=== PATIENT | female | born 1980 | race Caucasian/White ===

== ENCOUNTER 2023-09-28 07:58 | Inpatient (IN) | payer OTHER, SELFPAY ==
[2023-09-26 17:15] VITALS: BP 143/79; BMI 23.7
[2023-09-26 17:52] LABS: Urine Albumin Trace (Neg - Trace); Urine Bilirubin Negative (Negative); Urine Character Clear (Clear); Urine Color Yellow; Urine Glucose 3+ (Negative); Urine Ketone Negative (Negative); Urine Leukocyte 2+ (Negative); Urine Nitrite Positive (Negative); Urine Occult Blood 3+ (Negative); Urine Specific Gravity 1.015 (<1.030); Urine Urobilinogen Negative (Neg - 1+)
[2023-09-26 18:04] LABS: Urine Bacteria Moderate (Negative); Urine White Cell 30-40 /HPF (0-5)
[2023-09-26] MEDS: NSS 1000 IV (18:59)
[2023-09-26 19:03] LABS: % Basophils 0.4 % (0-2); % Eosinophils 0.2 % (0-6); % Immature Granulocytes 0.4 % (0-0.5); % Lymphocytes 6.6 % (20.5-51.1); % Neutrophils 90.4 % (42.2-75.2); Absolute Lymphocytes 0.5 10^3/uL (1.2-3.4); Absolute Monocytes 0.2 10^3/uL (0.1-0.6); Absolute Neutrophils 7.4 10^3/uL (1.4-6.5); Hematocrit 34.5 % (37.0-47.0); Hemoglobin 11.8 g/dL (12.0-16.0); Mean Corp Hgb Conc. 34.2 g/dL (33.0-37.0); Mean Corpuscular Volume 90.6 fL (81.0-99.0); Mean Platelet Volume 12.5 fL (7.4-10.4); Nucleated Red Blood Cells % 0 %; Platelet Count 199 10^3/uL (130-400); Red Blood Cell Count 3.81 10^6/uL (4.20-5.40); Red Cell Dist. Width 13.3 % (11.5-14.5); White Blood Cell Count 8.2 10^3/uL (4.8-10.8)
[2023-09-26 19:39] LABS: Blood Urea Nitrogen 18 mg/dl (7-17); Calcium 9.1 mg/dl (8.4-10.2); Carbon Dioxide 25 mmol/L (22-30); Chloride 106 mmol/L (98-107); Estimated Creatinine Clearance 102 ml/min; Glucose 194 mg/dl (70-99); Sodium 136 mmol/L (135-145); eGFR > 60.00
--- NOTE | 2023-09-26 20:10 | ED.GENMED ---
History of Present Illness
General
Chief Complaint: Musculo-Skeletal Complaint
Source: patient
Exam Limitations: none
Time Seen by Provider: 09/26/23 18:19
History of Present Illness
History of Present Illness:
43-year-old female who presents with concerns about uncontrolled blood sugar. She also had a recent fall about a week ago and fell onto her right side. She has has pain in her right shoulder. Patient however today started noticed some aches that
were more diffuse and into her hands. Patient does states she recently thought she may have had a UTI but symptoms seem to get better. No fevers necessarily but her sugars have been uncontrolled. She has attributed her high sugars to recent
dental work. The patient denies back pain. No abdominal pain. No vomiting. She does have a history of urinary tract infection in the past
Past History
Past History
ED Past Medical History: IDDM and Other (Restless leg syndrome, chronic back pain, scoliosis, sciatica, opioid use disorder, cervical neoplasia, anxiety, depression)
ED Past Surgical History: Gynecological (cervical LEEP surgery)
Social History
Tobacco: Former smoker
Alcohol: None
Drug: Former user
Personal: Single
Living: alone
Employment: Employed
Family History
Family History: Diabetes
Phy Exam
Physical Exam
Physical Exam:
CONSTITUTIONAL Patient alert and oriented to person, place and time. Well-appearing. Vital signs reviewed.
HEAD atraumatic, normocephalic.
EYES eyelids normal to inspection, Extraocular muscles intact, Conjunctiva normal, Sclera normal.
NECK normal range of motion, Trachea midline, no jugular venous distention.
RESPIRATORY CHEST No respiratory distress noted, Chest expansion equal, Bilateral breath sounds clear.
CARDIOVASCULAR regular rate and rhythm, Heart sounds normal.
ABDOMEN abdomen nontender, Bowel sounds normal. No distention.
BACK normal inspection, no obvious deformities, no CVA tenderness
UPPER EXTREMITY range of motion normal, Motor strength normal, no cyanosis, no edema.
LOWER EXTREMITY range of motion normal, Motor strength normal, no cyanosis, no edema.
NEURO Speech normal, No focal motor deficits, Richy coma scale 15, Memory normal, Cranial Nerves intact to screening exam.
SKIN skin warm, dry, and normal in color.
PSYCHIATRIC patient oriented to person place and time, Normal affect.
Course
Orders/Labs/Results
Orders:
Orders
09/26/23 Dinner
2000 calorie (17 carb) Diabetic
At Your Request: Full Participation
09/26/23 17:19
CR Shoulder, Trauma - Right Urgent
Reason For Exam: pain
09/26/23 17:45
HCG, Urine Qualitative Screen Urgent
Date Specimen was Collected: 09/26/23
Time Specimen was Collected: 17:18
Comment: ADD ON
Urinalysis Reflex To Culture Urgent
Date Specimen was Collected: 09/26/23
Time Specimen was Collected: 17:18
Urine Microscopic Reflex Cult Urgent
Urine Culture Urgent
TORI Source: U
Specimen Description:
Date Specimen was Collected: 09/26/23
Time Specimen was Collected: 17:18
09/26/23 18:54
0.9% Sodium Chloride 1000 ml [Nss] 1,000 ml IV BOLUS
09/26/23 18:57
CBC/With Diff [Complete Blood Count/With Diff] Urgent
09/26/23 19:18
Basic Metabolic Panel Urgent
09/26/23 20:09
Piperacillin/Tazo 3.375 Gram [Zosyn] 3.375 gram in 50 ml IV NOW
09/26/23 20:14
Acetaminophen [Tylenol] 1,000 mg PO NOW STA
09/26/23 20:15
Add On- LAB Urgent
Tests Added?: HCG quant, urine
09/26/23 20:30
Admit/Transfer Patient As Directed
Co-Sign Provider:
Level of Care: Observation services
Assign to:: Medical/Surgical
Physician / Group: dorene
Diagnosis: uti
Code Status As Directed
Resuscitation Status: Full Code
09/26/23 20:45
Blood Culture Q30M
TORI Source: Blood/Venous
Specimen Description:
09/26/23 21:08
Lactic Acid Q4H
Comment: CANCEL 2nd LACTIC ACID IF 1st LACTIC ACID IS LESS THAN 2
Potassium Urgent
09/26/23 21:09
Blood Culture Q30M
TORI Source: Blood/Venous
Specimen Description:
09/26/23 21:48
Acetaminophen [Tylenol] 650 mg PO Q4HPRN PRN
Ibuprofen [Motrin] 800 mg PO Q8HPRN PRN
09/26/23 21:48
Activity As Directed
Activity Level: As Tolerated
Vital Signs As Directed
Frequency: Per unit guidelines
DX Deep Vein Thrombosis Video Routine
09/26/23 22:00
Insulin Pump [Patient's Own Insulin Pump] See Dose Instructions SC ACHS
09/27/23 00:15
Lactic Acid Q4H
Comment: CANCEL 2nd LACTIC ACID IF 1st LACTIC ACID IS LESS THAN 2
09/27/23 04:00
Piperacillin/Tazo 3.375 Gram [Zosyn] 3.375 gram in 50 ml IV Q6H
09/27/23 06:00
Complete Blood Count/With Diff IN AM
Comprehensive Metabolic Panel IN AM
09/27/23 08:00
Heparin 5,000 units SC Q12
Abnormal Lab Results
09/26/23 09/26/23 09/26/23
17:45 18:57 19:18
RBC 3.81 L 10^6/uL
(4.20-5.40)
Hgb 11.8 L g/dL
(12.0-16.0)
Hct 34.5 L %
(37.0-47.0)
MPV 12.5 H fL
(7.4-10.4)
Absolute Neuts (auto) 7.4 H 10^3/uL
(1.4-6.5)
Absolute Lymphs (auto) 0.5 L 10^3/uL
(1.2-3.4)
Neutrophils % 90.4 H %
(42.2-75.2)
Lymphocytes % 6.6 L %
(20.5-51.1)
BUN 18 H mg/dl
(7-17)
Creatinine 0.5 L mg/dL
(0.6-1.0)
Glucose 194 H mg/dl
(70-99)
Ur Occult Blood Reflex 3+ A
(Negative)
Urine Nitrite (Reflex) Positive A
(Negative)
Leukocyte Esterase Rfl 2+ A
(Negative)
Urine RBC 3-6 A /HPF
(0-2)
Urine WBC (Reflex) 30-40 A /HPF
(0-5)
Urine Bacteria (Reflex) Moderate A
(Negative)
Urine Glucose 3+ A
(Negative)
09/26/23 18:57
09/26/23 21:08
Vital Signs
Temp: 99.3 F
Initial and Last Documented VS:
Initial Vital Signs
Temp Pulse Resp BP Pulse Ox
98.2 F 119 16 143/79 98
09/26/23 17:15 09/26/23 17:15 09/26/23 17:15 09/26/23 17:15 09/26/23 17:15
Last Documented Vital Signs
Temp Pulse Resp BP Pulse Ox
99.4 F 99 20 134/71 99
09/26/23 21:50 09/26/23 21:50 09/26/23 21:50 09/26/23 21:50 09/26/23 21:50
MDM/Problems Addressed
MDM/Problems Addressed:
Hyperglycemia, UTI
*Pulse Oximetry
Patient hypoxic: no
*Critical Care Note
Total Time (30-74mins, 75-104mins- exclusive of procedures): 30 minutes
Data Reviewed
Review of Other/Old Records Reveals: Labs (Prior microbiology reviewed from urine culture) and Records
Source: patient and family
Prescriptions/Medications Considered But Not Given:
Consider ceftriaxone but previously has had ESBL
Patient Management
Discussion with other providers: Hospitalist
Escalation/DeEscalation of care consider admission/obs:
History of IDDM. Appears of UTI and low-grade fever. Blood cultures, Zosyn admit
ED Attending Note
-
Portions of this chart may have been created with voice recognition software.� Occasional wrong word or��sound alike� substitutions may have occurred due to the inherent limitations of voice recognition software.
Discharge Plan
Departure
Patient Disposition: Admit
Date of Disposition: 09/26/23
Time of Disposition: 20:11
Admit to: Med/Surg
Presentation/result/management discussed w/ accepting MD/DO: Hospitalist
Discharge Problem:
Pyelonephritis, Acute hyperglycemia, h/o ESBL
Interventions
Interventions:
*Risk Screen - Suicide Last Done: 09/26/23 17:15
*General Assessment Last Done: 09/26/23 19:58
*Neglect/Abuse Screening Last Done: 09/26/23 17:15
ED- Fall Risk Assessment Last Done: 09/26/23 19:58
*ED COVID-19 Vaccine History Last Done: 09/26/23 19:58
*Nursing Disposition Last Done: 09/26/23 21:52
ED-Musculoskeletal Assessment Last Done: 09/26/23 19:58
Discharge Date and Time
Discharge Date/Time: 09/26/23 21:53
[2023-09-26 20:22] VITALS: BP 144/69
[2023-09-26 20:23] VITALS: BMI 24.4
--- NOTE | 2023-09-26 20:23 | PHANOTE ---
Med Rec Note:
Pt states she took a family members Tylenol #3 yesterday (09/25/23).
[2023-09-26 20:33] LABS: HCG, Urine Qualitative Screen Negative
--- NOTE | 2023-09-26 20:33 | HPS.HSE ---
Family Physician
-
Family Physician: Julio Cesar Montero
Chief Complaint
-
body pain, hyperglycemia
History of Present Illness
43-year-old female past medical history of type 1 diabetes on insulin pump, opioid use disorder, restless leg syndrome, chronic back pain, scoliosis, sciatica, cervical intraepithelial neoplasia, anxiety/depression, presenting with pains all over
her body, elevated blood sugars in the 400s.
She states that for the past week she has been having pains all over her body. She she had 2 root canals and deep cleaning done within the past week and was on Augmentin for a few days last week. Over the weekend she noticed urinary pressure. She
had chills today but no fevers. No abdominal pain, nausea vomiting or diarrhea.
He does not smoke or drink alcohol or use any marijuana or any other drugs.
Medical History
Past Medical History
Past Medical History: Reports Other ( type 1 diabetes on insulin pump, opioid use disorder, restless leg syndrome, chronic back pain, scoliosis, sciatica, cervical intraepithelial neoplasia, anxiety/depression)
Past Surgical History: Reports None
Social History
Tobacco: Non-smoker
Alcohol: None
Drug: None
Family History
Family History: Not pertinent
Allergies / Home Medications
Allergies reflects when Allergies were last updated in [employer].
Home Medications with original date entered in [employer]
Allergy/Medication List:
Allergies
Allergy/AdvReac Type Severity Reaction Status Date / Time
No Known Allergies Allergy Verified 09/26/23 17:18
Home Medications
insulin lispro 100 unit/mL subcutaneous solution (Humalog U-100 Insulin) 0 unit SC .VIA PUMP 09/17/18
ibuprofen 800 mg tablet 800 mg PO Q8HPRN PRN mild to moderate pain 09/26/23
Review of Systems
-
History Source: Patient
A 12 point ROS was completed and negative except as noted: Yes
Constitutional: Reports See HPI
EENT: Reports No Symptoms
Respiratory: Reports No Symptoms
Cardiac: Reports No Symptoms
Abdomen/GI: Reports No Symptoms
: Reports See HPI
Musculoskeletal: Reports No Symptoms
Skin: Reports No Symptoms
Neurological: Reports No Symptoms
Endocrine: Reports No Symptoms
Hematologic/Lymphatic: Reports No Symptoms
Psych: Reports No Symptoms
Physical Exam
Vital Signs
Vital Signs
Temp Pulse Resp BP Pulse Ox
99.3 F 93 18 144/69 100
09/26/23 20:22 09/26/23 20:22 09/26/23 20:22 09/26/23 20:22 09/26/23 20:22
Physical Exam
General: Well Developed, Well Nourished and No Apparent Distress
HEENT: NormoCephalic, Moist mucous membranes and Atraumatic
Respiratory: Clear
Cardiac: S1/S2 and Regular Rhythm; No Murmur or Rub
GI: Soft, Non Tender, Non Distended and Normal Bowel Sounds; No Organomegaly
Rectal: Deferred by Provider
Musculoskeletal: No Clubbing, No Cyanosis and No Edema
Skin: No Rash
Neuro: Nonfocal/grossly intact
Laboratory Results
-
09/26/23 18:57
Laboratory Results
Total Bilirubin Cancelled 09/26/23 19:18
AST Cancelled 09/26/23 19:18
ALT Cancelled 09/26/23 19:18
Alkaline Phosphatase Cancelled 09/26/23 19:18
Data Reviewed
-
Lab Data: Labs Reviewed by me
Old Records: Reviewed
Impression/Plan
-
IMPRESSION:
PLAN:
# Urinary tract infection
-IV fluids
-Urine culture, blood cultures pending
-Prior cultures show ESBL E. coli
-Zosyn
# Hyperglycemia secondary to UTI
#Type 1 diabetes
-Blood sugar improved to 194 when checked here
-IV fluids given
-Diabetic diet
-Continue insulin pump
Chronic back pain
-Continue ibuprofen
Prior opioid use disorder
Restless leg syndrome
Cervical intraepithelial neoplasia
Anxiety/depression
Full code
DVT prophylaxis�heparin
Diabetic diet
[2023-09-26] MEDS: TYLENOL 1000 MG PO (20:41)
[2023-09-26] MEDS: ZOSYN 50 IV (21:16)
[2023-09-26 21:26] LABS: Lactic Acid 1.4 mmol/L (0.7-2.0)
[2023-09-26 21:39] LABS: Potassium 3.9 mmol/L (3.5-5.1)
[2023-09-26 21:50] VITALS: BP 134/71; BMI 23.6
[2023-09-26] MEDS: PATIENT'S OWN INSULIN PUMP 1 UNITS SC (22:50)
[2023-09-26 23:43] VITALS: BP 94/79
[2023-09-27] MEDS: MOTRIN 800 MG PO (01:29)
[2023-09-27] MEDS: ZOSYN 50 IV ×4 (05:35→22:42)
[2023-09-27 06:00] VITALS: BMI 23.6
[2023-09-27 06:27] LABS: % Basophils 0.2 % (0-2); % Immature Granulocytes 0.7 % (0-0.5); % Lymphocytes 8.2 % (20.5-51.1); % Monocytes 6.2 % (1.7-9.3); % Neutrophils 84.7 % (42.2-75.2); Absolute Lymphocytes 0.5 10^3/uL (1.2-3.4); Absolute Monocytes 0.4 10^3/uL (0.1-0.6); Absolute Neutrophils 5.2 10^3/uL (1.4-6.5); Hematocrit 32.9 % (37.0-47.0); Hemoglobin 11.1 g/dL (12.0-16.0); Mean Corp Hgb Conc. 33.7 g/dL (33.0-37.0); Mean Corpuscular Hgb 30.7 pg (27.0-31.0); Mean Corpuscular Volume 90.9 fL (81.0-99.0); Mean Platelet Volume 12.3 fL (7.4-10.4); Nucleated Red Blood Cells % 0 %; Platelet Count 182 10^3/uL (130-400); Red Blood Cell Count 3.62 10^6/uL (4.20-5.40); Red Cell Dist. Width 13.2 % (11.5-14.5); White Blood Cell Count 6.1 10^3/uL (4.8-10.8)
[2023-09-27 06:53] LABS: ALT (SGPT) 18 U/L (0-35); AST (SGOT) 26 U/L (14-36); Albumin 3.4 g/dl (3.5-5.0); Alkaline Phosphatase 76 U/L (38-126); Blood Urea Nitrogen 14 mg/dl (7-17); Calcium 8.6 mg/dl (8.4-10.2); Carbon Dioxide 22 mmol/L (22-30); Chloride 107 mmol/L (98-107); Estimated Creatinine Clearance 102 ml/min; Glucose 157 mg/dl (70-99); Potassium 3.5 mmol/L (3.5-5.1); Sodium 135 mmol/L (135-145); Total Bilirubin 0.6 mg/dl (0.2-1.3); eGFR > 60.00
[2023-09-27 07:00] VITALS: BP 143/76
[2023-09-27 07:52] LABS: Glucose - Point of Care 152 mg/dl (70-99)
--- NOTE | 2023-09-27 08:13 | W.PN.HOSP.TC ---
Today's Communication/Plan
-
see bold
Assessment / Plan
Assessment / Plan
Pt seen and examined with nurse Jo Ann Carrera present at bedside:
Gen: NAD, AAOx3.
Eyes: EOMI, PERRLA, no scleral icterus.
Neck: supple.
CV: RRR, +S1/S2, no m/r/g.
Resp: CTAB, no rales, wheezes, or rhonchi.
Abd: +BS, soft, NT, ND
Skin: No rashes.
Neuro: CN 2-12 intact, non-focal.
Psych: Normal mood and affect.
Urinary tract infection
-s/p IVFs
-cont Zosyn with h/o ESBL E coli
-follow UCx/BCxs
-c/s ID
DM1:
-with hyperglycemia
-cont insulin pump
Other problems:
Chronic back pain: Continue ibuprofen
Prior opioid use disorder
Restless leg syndrome
Cervical intraepithelial neoplasia
Anxiety/depression
FULL/heparin
Anticipated Discharge: 24 - 48 hours
Subjective/Interval History
-
Date of Service: September 27, 2023
No new complaints.
Objective Data
-
Labs:
Laboratory Results
09/26/23 09/27/23
21:08 06:05
WBC 6.1
Hgb 11.1 L
Hct 32.9 L
Plt Count 182
Sodium 135
Potassium 3.9 3.5
Chloride 107
Carbon Dioxide 22
BUN 14
Creatinine 0.5 L
Glucose 157 H
Calcium 8.6
Total Bilirubin 0.6
AST 26
ALT 18
Alkaline Phosphatase 76
Vital Signs:
Vital Signs
Temp Pulse Resp BP Pulse Ox
97.4 F 60 18 143/76 95
09/27/23 07:00 09/27/23 07:00 09/27/23 07:00 09/27/23 07:00 09/27/23 07:00
I&O
09/26/23 09/27/23 09/28/23
06:59 06:59 06:59
Intake Total 240 / 240
Balance 240 / 240
[2023-09-27] MEDS: TYLENOL 650 MG PO ×2 (08:33→19:17)
[2023-09-27] MEDS: PATIENT'S OWN INSULIN PUMP 1 UNITS SC (09:25)
--- NOTE | 2023-09-27 10:49 | CON.ID ---
Consultation
-
Date/Time Consultation Requested: September 27, 2023 0820
Date/Time Consultation Performed: September 27, 2023 1050
Requesting Provider: Dr. Stuart Mckeon
Performing Provider: Dr. Radha Scherer
Reason for Consultation: hx ESBL in urine
Chief Complaint / Past History
Chief Complaint
High glucose, body aches
History of Present Illness
43 year old female with DM1 on insulin pump, chronic pain who has not been feeling well for the past 2 weeks. She thought it was from her tooth which she underwent 2 root canals about 2 weeks ago. She was placed on Augmentin for about a week post
procedure. She continued to feel poorly with weakness, generalized pain. She fell once. On Sunday she experienced bladder pressure. No flank pain. + chills. Glucose remained elevated > 400. She came to ED yesterday. She was started on Zosyn for
UTI. She had UTI 4 years ago with ESBL-Ecoli. No hx recurrent UTI. She feels better today.
Past History
Additional Past Medical History:
DM1, insulin pump
chronic back pain
sciatica
hx opioid use disorder
anxiety/depression
cervical intraepithelial neoplasia
Allergy History:
No Known Allergies Allergy (Verified 09/26/23 17:18)
Medications Reviewed: Yes
Current Antibiotics:
Zosyn
Social History
Tobacco: Non-Smoker
Alcohol: None
Drug: None
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
Family History
Family History: Not Pertinent
Review of Systems
Review of Systems
General: Chills and Change in Appetite
HEENT: Headache (intemittent); Negative Sinus Problems or Pharyngitis
Cardiovascular: Negative Chest Pain
Respiratory: Negative Dyspnea or Cough
Gasteroenterology: Other (no diarrhea); Negative Nausea or Vomiting
Genital / Urological: Negative Dysuria or Flank Pain
Endocrine: Weakness
Neurological: Negative Dizziness
All systems: All other systems were reviewed and were negative
Vital Signs
Temp Pulse Resp BP Pulse Ox
97.4 F 60 18 143/76 95
09/27/23 07:00 09/27/23 07:00 09/27/23 07:00 09/27/23 07:00 09/27/23 09:52
Physical Exam
Physical Exam
Constitutional: No Acute Distress and Comfortable
Eyes: No Conjunctival Hemorrhage and Sclera Anicteric
Cardiovascular: Regular Rate and S1/S2
Pulmonary: Clear
Gastrointestinal: Soft, Non Tender, Non Distended and Normal Bowel Sounds
Genito-Urinary: Negative CVA Tenderness
Extremities: Negative Edema
Neurological: AO x 3
Lab / Diagnostic Study Results
09/27/23 06:05
09/27/23 06:05
Abs Immat Gran (auto) 0.0 10^3/uL (0-0.05) 09/27/23 06:05
Absolute Neuts (auto) 5.2 10^3/uL (1.4-6.5) 09/27/23 06:05
Absolute Lymphs (auto) 0.5 10^3/uL (1.2-3.4) L 09/27/23 06:05
Absolute Monos (auto) 0.4 10^3/uL (0.1-0.6) 09/27/23 06:05
Absolute Basos (auto) 0.0 10^3/uL (0-0.2) 09/27/23 06:05
Immature Gran % 0.7 % (0-0.5) H 09/27/23 06:05
Neutrophils % 84.7 % (42.2-75.2) H 09/27/23 06:05
Lymphocytes % 8.2 % (20.5-51.1) L 09/27/23 06:05
Monocytes % 6.2 % (1.7-9.3) 09/27/23 06:05
Eosinophils % 0.0 % (0-6) 09/27/23 06:05
Basophils % 0.2 % (0-2) 09/27/23 06:05
Lactic Acid Cancelled 09/27/23 00:15
Ur Squamous Epith Cells 3-5 /LPF (Few) 09/26/23 17:45
Microbiology Results
Micro:
09/26/23 22:15 Blood Culture - Pending
Blood/Venous
09/26/23 21:09 Blood Culture - Pending
Blood/Venous
09/26/23 17:45 Urine Culture - Pending
Urine
09/26/23 [facility]: No acute fracture.
Assessment / Plan
# Suspect UTI
- Await Ucx, blood cx's
- Continue Zosyn for now.
# DMI
[2023-09-27 12:03] LABS: Glucose - Point of Care 178 mg/dl (70-99)
[2023-09-27] MEDS: PATIENT'S OWN INSULIN PUMP SC ×3 (13:56→22:45)
[2023-09-27] MEDS: TUMS EX (EXTRA STRENGTH) CHEWABLE 1 TABLET PO ×2 (14:14→22:42)
[2023-09-27 15:00] VITALS: BP 131/69
--- NOTE | 2023-09-27 15:54 | CM ---
Met with pt at bedside
Pt lives with her 8yo son in a 2 story home
Independent, works FT, drives
DME - has insulin pump, dexiscan
SNF/HH - denies past hx
Has ride at d/c
PCP - Dr Fanta Montero
Pharm - [facility]
CM will follow for d/c needs
Plan - anticipate home no needs
[2023-09-27 16:36] LABS: Glucose - Point of Care 159 mg/dl (70-99)
[2023-09-27] MEDS: PATIENT'S OWN INSULIN PUMP 5.59999999999999964 UNITS SC (18:34)
[2023-09-27] MEDS: ZOFRAN 4 MG IV (19:08)
[2023-09-27 19:24] LABS: Glucose - Point of Care 168 mg/dl (70-99)
[2023-09-27 23:08] VITALS: BP 103/57
[2023-09-28] MEDS: ZOSYN 50 IV ×4 (05:41→22:18)
[2023-09-28 06:07] VITALS: BMI 23.8
[2023-09-28 07:00] VITALS: BP 103/59
--- NOTE | 2023-09-28 07:48 | W.PN.HOSP.TC ---
Today's Communication/Plan
-
see bold
Assessment / Plan
Assessment / Plan
Pt seen and examined with nurse John Ivy present at bedside:
Gen: NAD, AAOx3.
Eyes: EOMI, PERRLA, no scleral icterus.
Neck: supple.
CV: remains RRR, +S1/S2, no m/r/g.
Resp: remains CTAB, no rales, wheezes, or rhonchi.
Abd: remains +BS, soft, NT, ND
Skin: No rashes.
Neuro: CN 2-12 intact, non-focal.
Psych: Normal mood and affect.
09/26/23 22:15 Blood/Venous Blood Culture - Preliminary
No Growth in 24 hours- Final report to follow
09/26/23 21:09 Blood/Venous Blood Culture - Preliminary
No Growth in 24 hours- Final report to follow
09/26/23 17:45 Urine Urine Culture - Preliminary
Gram negative bacilli
Urinary tract infection
-s/p IVFs
-cont Zosyn with h/o ESBL E coli as per ID
-follow UCx/BCxs
DM1:
-with hyperglycemia
-cont insulin pump
Other problems:
Chronic back pain: Continue ibuprofen
Prior opioid use disorder
Restless leg syndrome
Cervical intraepithelial neoplasia
Anxiety/depression
FULL/heparin
Anticipated Discharge: Within 24 hours
Subjective/Interval History
-
Date of Service: September 28, 2023
No new complaints.
Objective Data
-
Vital Signs:
Vital Signs
Temp Pulse Resp BP Pulse Ox
98.1 F 73 14 103/57 98
09/27/23 23:08 09/27/23 23:08 09/27/23 23:08 09/27/23 23:08 09/27/23 23:08
I&O
09/27/23 09/28/23 09/29/23
06:59 06:59 06:59
Intake Total 240 / 240 1240 / 1240
Balance 240 / 240 1240 / 1240
[2023-09-28 07:56] LABS: Glucose - Point of Care 136 mg/dl (70-99)
[2023-09-28] MEDS: ZOFRAN 4 MG IV ×2 (08:24→17:01)
[2023-09-28] MEDS: PATIENT'S OWN INSULIN PUMP 1 UNITS SC (08:24)
[2023-09-28] MEDS: TUMS EX (EXTRA STRENGTH) CHEWABLE 1 TABLET PO ×2 (08:24→17:01)
--- NOTE | 2023-09-28 11:00 | W.PN.ID1 ---
Date of Service
Date of Service: September 28, 2023
Today's Communication
Awaitin Ucx
Assessment / Plan
# GNR UTI
- Await final Ucx
- blood cx's neg to date
- Continue Zosyn for now (d3).
#Additional Past Medical History:
DM1, insulin pump
chronic back pain
sciatica
hx opioid use disorder
anxiety/depression
cervical intraepithelial neoplasia
Chief Complaint
-: UTI
Subjective / Review of Systems
No new complaitns.
Vital Signs / Physical Exam
Vital Signs
Vital Signs
Temp Pulse Resp BP Pulse Ox
98.2 F 77 16 103/59 97
09/28/23 07:00 09/28/23 07:00 09/28/23 07:00 09/28/23 07:00 09/28/23 07:00
Physical Exam
Constitutional: No Acute Distress
Genito-Urinary: Negative CVA Tenderness
Extremities: Negative Edema
Neurological: AO x 3
Objective Data
Lab Data
Lab Results
09/27/23 06:05
09/27/23 06:05
Estimated Creat Clear 102 ml/min 09/27/23 06:05
Lactic Acid Cancelled 09/27/23 00:15
Total Bilirubin 0.6 mg/dl (0.2-1.3) 09/27/23 06:05
AST 26 U/L (14-36) 09/27/23 06:05
ALT 18 U/L (0-35) 09/27/23 06:05
Alkaline Phosphatase 76 U/L (38-126) 09/27/23 06:05
Most recent labs reviewed.
Micro Results:
09/26/23 17:45 Urine Culture - Preliminary
Urine Gram negative bacilli
09/26/23 22:15 Blood Culture - Preliminary
Blood/Venous No Growth in 24 hours- Final report to follow
09/26/23 21:09 Blood Culture - Preliminary
Blood/Venous No Growth in 24 hours- Final report to follow
09/26/23 [facility]: No acute fracture.
[2023-09-28 11:37] LABS: Glucose - Point of Care 256 mg/dl (70-99)
[2023-09-28] MEDS: PATIENT'S OWN INSULIN PUMP 7 UNITS SC (11:57)
[2023-09-28 15:00] VITALS: BP 116/75
--- NOTE | 2023-09-28 16:32 | CM ---
Chart reviewed: anticipate discharge to home within 24 hours; urine cultures pending
Plan: DC to home; no needs
[2023-09-28 17:00] LABS: Glucose - Point of Care 158 mg/dl (70-99)
[2023-09-28] MEDS: PATIENT'S OWN INSULIN PUMP 5.29999999999999982 UNITS SC (18:19)
[2023-09-28 21:19] LABS: Glucose - Point of Care 213 mg/dl (70-99)
[2023-09-28] MEDS: PATIENT'S OWN INSULIN PUMP 3.25999999999999979 UNITS SC (22:25)
[2023-09-28 22:54] VITALS: BP 99/59
[2023-09-29] MEDS: ZOSYN 50 IV ×2 (04:13→10:31)
[2023-09-29 06:00] VITALS: BMI 23.0
[2023-09-29 07:00] VITALS: BP 102/57
[2023-09-29] MEDS: ZOFRAN 4 MG IV (07:52)
[2023-09-29] MEDS: TUMS EX (EXTRA STRENGTH) CHEWABLE 1 TABLET PO (07:52)
[2023-09-29] MEDS: FLUSH (NSS) 2 FLUSH IV (07:54)
[2023-09-29] MEDS: PATIENT'S OWN INSULIN PUMP 3.95999999999999996 UNITS SC (08:00)
[2023-09-29 08:02] LABS: Glucose - Point of Care 122 mg/dl (70-99)
--- NOTE | 2023-09-29 08:21 | W.PN.HOSP.TC ---
Addendum entered and electronically signed by Stuart Mckeon MD 09/29/23 10:12:
Case discussed with Dr. Scherer. Patient has completed 3 days of Zosyn for uncomplicated urinary tract infection and can be discharged off antibiotic therapy.
Total time spent on d/c = 31 min. This included today's physical exam, progress note, review of laboratory and diagnostic data, preparation of discharge documents and prescriptions, and discussions about the pt's hospital course and discharge plan
with the patient and other medical insurance clerk involved in the patient's care.
Original Note:
Today's Communication/Plan
-
see bold
Assessment / Plan
Assessment / Plan
Pt seen and examined with nurse Marsha Mitchell present at bedside:
Gen: NAD, AAOx3.
Eyes: EOMI, PERRLA, no scleral icterus.
Neck: supple.
CV: continues to remain RRR, +S1/S2, no m/r/g.
Resp: continues to remain CTAB, no rales, wheezes, or rhonchi.
Abd: continues to remain +BS, soft, NT, ND
Skin: No rashes.
Neuro: CN 2-12 intact, non-focal.
Psych: Normal mood and affect.
09/26/23 22:15 Blood/Venous Blood Culture - Preliminary
No Growth in 48 hours- Final report to follow
09/26/23 21:09 Blood/Venous Blood Culture - Preliminary
No Growth in 48 hours- Final report to follow
09/26/23 17:45 Urine Urine Culture - Final
Escherichia coli - ESBL
Urinary tract infection
-s/p IVFs
-cont Zosyn with ESBL E coli as per ID
-follow UCx/BCxs
DM1:
-with hyperglycemia
-cont insulin pump
Other problems:
Chronic back pain: Continue ibuprofen
Prior opioid use disorder
Restless leg syndrome
Cervical intraepithelial neoplasia
Anxiety/depression
FULL/heparin
Anticipated Discharge: Within 24 hours
Subjective/Interval History
-
Date of Service: September 29, 2023
No new complaints.
Objective Data
-
Vital Signs:
Vital Signs
Temp Pulse Resp BP Pulse Ox
97.9 F 75 18 102/57 99
09/29/23 07:00 09/29/23 07:00 09/29/23 07:00 09/29/23 07:00 09/29/23 07:00
I&O
09/28/23 09/29/23 09/30/23
06:59 06:59 06:59
Intake Total 1240 / 1240 320 / 320
Balance 1240 / 1240 320 / 320
--- NOTE | 2023-09-29 10:04 | W.PN.ID1 ---
Date of Service
Date of Service: September 29, 2023
Today's Communication
DC home.
Assessment / Plan
# Uncomplicated ESBL-E. coli UTI
- blood cx's neg to date
- Has completed 3 days of Zosyn today.
- Can dc home.
#Additional Past Medical History:
DM1, insulin pump
chronic back pain
sciatica
hx opioid use disorder
anxiety/depression
cervical intraepithelial neoplasia
Chief Complaint
-: UTI
Subjective / Review of Systems
Feels improved.
Vital Signs / Physical Exam
Vital Signs
Vital Signs
Temp Pulse Resp BP Pulse Ox
97.9 F 75 18 102/57 99
09/29/23 07:00 09/29/23 07:00 09/29/23 07:00 09/29/23 07:00 09/29/23 07:00
Physical Exam
Constitutional: No Acute Distress
Genito-Urinary: Negative CVA Tenderness
Objective Data
Lab Data
Lab Results
09/27/23 06:05
09/27/23 06:05
Estimated Creat Clear 102 ml/min 09/27/23 06:05
Lactic Acid Cancelled 09/27/23 00:15
Total Bilirubin 0.6 mg/dl (0.2-1.3) 09/27/23 06:05
AST 26 U/L (14-36) 09/27/23 06:05
ALT 18 U/L (0-35) 09/27/23 06:05
Alkaline Phosphatase 76 U/L (38-126) 09/27/23 06:05
Most recent labs reviewed.
Micro Results:
09/26/23 22:15 Blood Culture - Preliminary
Blood/Venous No Growth in 48 hours- Final report to follow
09/26/23 21:09 Blood Culture - Preliminary
Blood/Venous No Growth in 48 hours- Final report to follow
09/26/23 17:45 Urine Culture - Final
Urine Escherichia coli - ESBL
09/26/23 [facility]: No acute fracture.
Care Review
Plan reviewed with: Physician (Dr. Mckeon)
--- NOTE | 2023-09-29 12:55 | W.DCSUMMARY ---
Discharge Summary
Discharge Data
Date of Admission: 09/28/23
Date of Discharge: 09/29/23
-
Pending Results: No
Hospital Course
Primary diagnoses:
Uncomplicated urinary tract infection
Secondary diagnoses:
Type 1 diabetes mellitus
Chronic back pain: Continue ibuprofen
Prior opioid use disorder
Restless leg syndrome
Cervical intraepithelial neoplasia
Anxiety
Depression
Consultants:
Infectious disease
Imaging:
R shoulder Xray: No acute fracture.
Hospital course: 43-year-old female who presented with chief complaints of body pain and hyperglycemia as outlined in HPI on admission. The patient was found have urinary tract infection. She was placed on Zosyn. Urine culture grew ESBL E. coli.
She was seen in consultation by infectious disease. She completed 3 days of Zosyn for uncomplicated urinary tract infection. She did not require further antibiotic therapy on discharge.
Discharge Plan
-
Patient Disposition: Home (Routine Discharge)
Discharge Diagnosis/Procedures: Uncomplicated urinary tract infection
Condition: Good
Diet: Diabetic, Carb Controlled
Activity: As tolerated
Driving Restrictions: As prior to admission
Bathing Restrictions: None
Referrals:
Julio Cesar Montero, DO [Family Provider] - in less than 1 week
Prescriptions:
Continued
insulin lispro [Humalog U-100 Insulin] 100 UNIT/ML solution
0 unit SC .VIA PUMP
ibuprofen 800 mg tablet
800 mg PO Q8HPRN PRN (Reason: mild to moderate pain)
Discharge Orders:
Discharge Patient (As Directed); Ordered 09/29/23
Ordered By: Stuart Mckeon
Discharge Date and Time
Discharge Date/Time: 09/29/23 12:50
Print Language: AMHARIC
== END 2023-09-29 12:50 | disposition home or self-care (01) | DRG 690 ==
LOC: 3 WEST ACU 07:58
PROVIDERS: Emergency Medicine; ADMITTING PHYSICIAN Hospitalist; ATTENDING PHYSICIAN Internal Medicine; EMERGENCY PHYSICIAN Emergency Medicine; FAMILY PHYSICIAN Family Medicine; OTHER PHYSICIAN Internal Medicine Infectious Disease
DX: N39.0 Urinary tract infection, site not specified (principal); E10.65 Type 1 diabetes mellitus with hyperglycemia; M25.511 Pain in right shoulder; B96.29 Other Escherichia coli [E. coli] as the cause of diseases classified elsewhere; G89.29 Other chronic pain; M54.9 Dorsalgia, unspecified; G25.81 Restless legs syndrome; F41.9 Anxiety disorder, unspecified; F32.A Depression, unspecified; F11.21 Opioid dependence, in remission; N87.9 Dysplasia of cervix uteri, unspecified; Z96.41 Presence of insulin pump (external) (internal); Z87.891 Personal history of nicotine dependence
CPT/HCPCS: 73030; 80048; 80053; 81003; 81015; 81025; 82962; 83605; 84132; 85025; 87040; 87077; 87086; 87186; 96361; 96365; 99291

== ENCOUNTER 2023-10-09 17:46 | Inpatient (IN) | payer OTHER, SELFPAY ==
[2023-10-09 15:36] VITALS: BP 153/73
[2023-10-09 15:47] VITALS: BP 136/63
[2023-10-09 15:49] VITALS: BMI 23.2
[2023-10-09 16:00] VITALS: BP 133/93
[2023-10-09 16:05] LABS: Urine Albumin Trace (Neg - Trace); Urine Bilirubin Negative (Negative); Urine Character Clear (Clear); Urine Color Yellow; Urine Glucose 2+ (Negative); Urine Ketone 1+ (Negative); Urine Leukocyte 2+ (Negative); Urine Nitrite Positive (Negative); Urine Occult Blood 3+ (Negative); Urine Specific Gravity 1.015 (<1.030); Urine Urobilinogen Negative (Neg - 1+)
[2023-10-09 16:11] LABS: Urine Red Blood Cell 16-20 /HPF (0-2); Urine Squamous Cell 16-20 /LPF (Few); Urine White Cell 70-80 /HPF (0-5)
[2023-10-09 16:12] LABS: Urine Bacteria Many (Negative)
[2023-10-09] MEDS: ZOSYN 50 IV ×2 (16:46→22:33)
[2023-10-09 16:53] LABS: % Basophils 0.3 % (0-2); % Eosinophils 0.1 % (0-6); % Immature Granulocytes 0.3 % (0-0.5); % Lymphocytes 5.6 % (20.5-51.1); % Monocytes 7.7 % (1.7-9.3); Absolute Lymphocytes 0.9 10^3/uL (1.2-3.4); Absolute Monocytes 1.2 10^3/uL (0.1-0.6); Absolute Neutrophils 13.5 10^3/uL (1.4-6.5); Hematocrit 30.9 % (37.0-47.0); Hemoglobin 10.7 g/dL (12.0-16.0); Mean Corp Hgb Conc. 34.6 g/dL (33.0-37.0); Mean Corpuscular Hgb 30.6 pg (27.0-31.0); Mean Corpuscular Volume 88.3 fL (81.0-99.0); Mean Platelet Volume 12.1 fL (7.4-10.4); Nucleated Red Blood Cells % 0 %; Platelet Count 216 10^3/uL (130-400); Red Cell Dist. Width 13.2 % (11.5-14.5); White Blood Cell Count 15.6 10^3/uL (4.8-10.8)
[2023-10-09 16:58] LABS: Lactic Acid 0.8 mmol/L (0.7-2.0)
[2023-10-09 17:00] VITALS: BP 107/61
--- NOTE | 2023-10-09 17:01 | ED.GENMED ---
History of Present Illness
General
Chief Complaint: Urinary Symptoms
Source: patient
Exam Limitations: none
Time Seen by Provider: 10/09/23 15:46
Nursing documentation reviewed up to this point in time: agreed with
History of Present Illness
History of Present Illness:
Patient to ED with complaint of shaking chill, body aches, increasing back pain. Symptoms started yesterday and continue to escalate. She was admitted her on 09/25 for hypergylcemia, UTI ESBL. She was treated wtih IV zosyn x 3 days. No further
antibiotics prescribed. Reports doing well until yesterday when she felt like her symptoms were returning. Taking ibu with temporary relief of body aches but continues with chills. Brought to ED by spouse for eval.
Past History
Past History
ED Past Medical History: IDDM and Other (Restless leg syndrome, chronic back pain, scoliosis, sciatica, opioid use disorder, cervical neoplasia, anxiety, depression)
ED Past Surgical History: Gynecological (cervical LEEP surgery)
Social History
Tobacco: Former smoker
Alcohol: None
Drug: Former user
Personal: Single
Living: alone
Employment: Employed
Family History
Family History: Diabetes
Review of Systems
Review of Systems
Allergies reviewed?: Yes
All Other Systems: ROS reviewed and negative except as documented in HPI and ROS
Constitutional: Reports fatigue and chills
EENT: Reports no symptoms
Respiratory: Reports no symptoms
Cardiac: Reports no symptoms
ABD/GI: Reports no symptoms
: Reports no symptoms
Musculoskeletal: Reports back pain
Skin: Reports no symptoms
Neurological: Reports weakness
Psychiatric: Reports no symptoms
Phy Exam
General Physical Exam
General Presentation: mild distress
General age: appears stated age
General Skin: warm and dry
General Habitus: normal
General Mental: alert
Gastrointestinal Exam
Gastrointestinal Exam: normal bowel sounds, non tender, soft, no organomegaly, non distended and cva tenderness
Musculoskeletal Exam
Musculoskeletal Exam: full ROM and neuro vasc intact
Skin Exam
Skin Exam: normal color, warm/dry and no rash
Psychiatric Exam
Psychiatric Exam: normal mood/affect
Course
Orders/Labs/Results
Orders:
Orders
10/09/23 Dinner
2000 calorie (17 carb) Diabetic
At Your Request: Full Participation
10/09/23 15:57
Urinalysis Reflex To Culture Urgent
Date Specimen was Collected: 10/09/23
Time Specimen was Collected: 15:53
Urine Microscopic Reflex Cult Urgent
Urine Culture Urgent
TORI Source: U
Specimen Description:
Date Specimen was Collected: 10/09/23
Time Specimen was Collected: 15:53
10/09/23 16:39
Complete Blood Count/With Diff Urgent
Comprehensive Metabolic Panel Urgent
Lactic Acid Urgent
Blood Culture Urgent
TORI Source: Blood/Venous
Specimen Description:
10/09/23 16:40
Piperacillin/Tazo 3.375 Gram [Zosyn] 3.375 gram in 50 ml IV NOW
10/09/23 17:01
Renal Only US [US Renal Only W/O Bladder] Urgent
Comment:
Reason For Exam: sepsis
10/09/23 17:25
Admit/Transfer Patient As Directed
Co-Sign Provider:
Level of Care: Inpatient admission
Assign to:: Medical/Surgical
Physician / Group: dorene
Diagnosis: sepsis uti
Reason for Hospitalization: sepsis uti
Expected length of stay greater than two midnights?: Yes
ELOS- Estimated Length of Stay in days: 2
I certify the patient meets the requirements for IP care: Yes
10/09/23 17:26
Code Status As Directed
Resuscitation Status: Full Code
10/09/23 17:27
0.9% Sodium Chloride 500 ml [Nss] 500 ml IV BOLUS
10/09/23 19:08
0.9% Sodium Chloride 1000 ml [Nss] 1,000 ml IV 80 mls/hr
Acetaminophen [Tylenol] 650 mg PO Q4HPRN PRN
Ibuprofen [Motrin] 800 mg PO Q8HPRN PRN
10/09/23 19:08
Activity As Directed
Activity Level: As Tolerated
Vital Signs As Directed
Frequency: Per unit guidelines
DX Deep Vein Thrombosis Video Routine
10/09/23 20:00
Heparin 5,000 units SC Q12
10/09/23 22:00
Insulin Pump [Patient's Own Insulin Pump] See Dose Instructions SC ACHS
Piperacillin/Tazo 3.375 Gram [Zosyn] 3.375 gram in 50 ml IV Q6H
10/10/23 06:00
Complete Blood Count/With Diff IN AM
Comprehensive Metabolic Panel IN AM
Abnormal Lab Results
10/09/23 10/09/23
15:57 16:39
WBC 15.6 H 10^3/uL
(4.8-10.8)
RBC 3.50 L 10^6/uL
(4.20-5.40)
Hgb 10.7 L g/dL
(12.0-16.0)
Hct 30.9 L %
(37.0-47.0)
MPV 12.1 H fL
(7.4-10.4)
Absolute Neuts (auto) 13.5 H 10^3/uL
(1.4-6.5)
Absolute Lymphs (auto) 0.9 L 10^3/uL
(1.2-3.4)
Absolute Monos (auto) 1.2 H 10^3/uL
(0.1-0.6)
Neutrophils % 86.0 H %
(42.2-75.2)
Lymphocytes % 5.6 L %
(20.5-51.1)
Sodium 131 L mmol/L
(135-145)
Creatinine 0.5 L mg/dL
(0.6-1.0)
Glucose 223 H mg/dl
(70-99)
Total Protein 6.2 L g/dl
(6.3-8.2)
Urine Ketones 1+ A
(Negative)
Ur Occult Blood Reflex 3+ A
(Negative)
Urine Nitrite (Reflex) Positive A
(Negative)
Leukocyte Esterase Rfl 2+ A
(Negative)
Urine RBC 16-20 A /HPF
(0-2)
Urine WBC (Reflex) 70-80 A /HPF
(0-5)
Urine Bacteria (Reflex) Many A
(Negative)
Urine Glucose 2+ A
(Negative)
10/09/23 16:39
10/09/23 16:39
Vital Signs
Initial and Last Documented VS:
Initial Vital Signs
Temp Pulse Resp BP Pulse Ox
98.2 F 101 20 153/73 98
10/09/23 15:36 10/09/23 15:36 10/09/23 15:36 10/09/23 15:36 10/09/23 15:36
Last Documented Vital Signs
Temp Pulse Resp BP Pulse Ox
98.2 F 101 20 104/57 97
10/09/23 15:36 10/09/23 15:36 10/09/23 15:36 10/09/23 18:00 10/09/23 18:15
*Critical Care Note
Total Time (30-74mins, 75-104mins- exclusive of procedures): Not Applicable
Update Note
Update Note:
Patient to ED with complaint of body aches, shaking chills x 24 hours. Similar to 09/25 when she was admitted for UTI ESBL, tx with zosyn x 3 days. UA tonight reflecting UTI. +CVA tenderness. Renal US pending. IV zosyn starated in dept.
Afebrile in ED however took IBuprofen [employer]. Labs reviewed. WBC now 15.. Will admit to hospitalist.
ED Attending Note
-
Portions of this chart may have been created with voice recognition software.� Occasional wrong word or��sound alike� substitutions may have occurred due to the inherent limitations of voice recognition software.
Discharge Plan
Departure
Patient Disposition: Admit
Date of Disposition: 10/09/23
Time of Disposition: 17:10
Presentation/result/management discussed w/ accepting MD/DO: Hospitalist
Condition: Fair
Covid-19: Not Applicable
Discharge Problem:
UTI (urinary tract infection)
Interventions
Interventions:
*Risk Screen - Suicide Last Done: 10/09/23 15:36
*General Assessment Last Done: 10/09/23 15:36
*Neglect/Abuse Screening Last Done: 10/09/23 15:36
ED- Fall Risk Assessment Last Done: 10/09/23 15:50
*ED COVID-19 Vaccine History Last Done: 10/09/23 15:50
*Nursing Disposition Last Done: 10/09/23 18:26
ED-Female Genitourinary Assessment Last Done: 10/09/23 15:50
Discharge Date and Time
Discharge Date/Time: 10/09/23 18:28
[2023-10-09 17:06] LABS: ALT (SGPT) 14 U/L (0-35); AST (SGOT) 19 U/L (14-36); Albumin 3.6 g/dl (3.5-5.0); Alkaline Phosphatase 75 U/L (38-126); Blood Urea Nitrogen 13 mg/dl (7-17); Calcium 8.6 mg/dl (8.4-10.2); Carbon Dioxide 22 mmol/L (22-30); Chloride 103 mmol/L (98-107); Estimated Creatinine Clearance 102 ml/min; Glucose 223 mg/dl (70-99); Potassium 3.8 mmol/L (3.5-5.1); Sodium 131 mmol/L (135-145); Total Bilirubin 0.7 mg/dl (0.2-1.3); Total Protein 6.2 g/dl (6.3-8.2); eGFR > 60.00
--- NOTE | 2023-10-09 17:30 | HPS.HSE ---
Family Physician
-
Family Physician: Julio Cesar Montero
Chief Complaint
-
chills
History of Present Illness
43-year-old female past medical history of type 1 diabetes on insulin pump, opioid use disorder, restless leg syndrome, chronic back pain, scoliosis, sciatica, cervical intraepithelial neoplasia, anxiety/depression, presenting with shaking chills,
body aches, increasing bilateral back pain started yesterday got worse. Denies any abdominal pain. Denies any urinary symptoms. Denies any history of kidney stones. Her blood sugar started increasing yesterday as well alerting her that something
was wrong. She was nauseous but denied vomiting. She denied diarrhea.
She does not smoke or drink alcohol or use any marijuana or any other drugs.
Patient was admitted on 09/25 for ESBL E. coli UTI and hyperglycemia. Treated with Zosyn for 3 days with resolution of symptoms.
Medical History
Past Medical History
Past Medical History: Reports Other (type 1 diabetes on insulin pump, opioid use disorder, restless leg syndrome, chronic back pain, scoliosis, sciatica, cervical intraepithelial neoplasia, anxiety/depression)
Past Surgical History: Reports None
Social History
Tobacco: Non-smoker
Alcohol: None
Drug: None
Family History
Family History: Not pertinent
Allergies / Home Medications
Allergies reflects when Allergies were last updated in [facility].
Home Medications with original date entered in [facility]
Allergy/Medication List:
Allergies
Allergy/AdvReac Type Severity Reaction Status Date / Time
No Known Allergies Allergy Verified 10/09/23 16:54
Home Medications
insulin lispro 100 unit/mL subcutaneous solution (Humalog U-100 Insulin) 0 unit SC .VIA PUMP Diabetes 09/17/18
ibuprofen 800 mg tablet 800 mg PO Q8HPRN PRN mild to moderate pain 09/26/23
acetaminophen 300 mg-codeine 30 mg tablet 1 tab PO Q6HPRN PRN moderate pain 10/09/23
Review of Systems
-
History Source: Patient
A 12 point ROS was completed and negative except as noted: Yes
Constitutional: Reports No Symptoms
EENT: Reports No Symptoms
Respiratory: Reports No Symptoms
Cardiac: Reports No Symptoms
Abdomen/GI: Reports No Symptoms
: Reports No Symptoms
Musculoskeletal: Reports No Symptoms
Skin: Reports No Symptoms
Neurological: Reports No Symptoms
Endocrine: Reports No Symptoms
Hematologic/Lymphatic: Reports No Symptoms
Psych: Reports No Symptoms
Physical Exam
Vital Signs
Vital Signs
Temp Pulse Resp BP Pulse Ox
98.2 F 101 20 133/93 98
10/09/23 15:36 10/09/23 15:36 10/09/23 15:36 10/09/23 16:00 10/09/23 16:30
Physical Exam
General: Well Developed, Well Nourished and No Apparent Distress
HEENT: NormoCephalic, Moist mucous membranes and Atraumatic
Respiratory: Clear
Cardiac: S1/S2 and Regular Rhythm; No Murmur or Rub
GI: Soft, Non Tender, Non Distended and Normal Bowel Sounds; No Organomegaly
Rectal: Deferred by Provider
Musculoskeletal: No Clubbing, No Cyanosis and No Edema
Skin: No Rash
Neuro: Nonfocal/grossly intact
Laboratory Results
-
10/09/23 16:39
10/09/23 16:39
Laboratory Results
Lactic Acid 0.8 mmol/L (0.7-2.0) 10/09/23 16:39
Total Bilirubin 0.7 mg/dl (0.2-1.3) 10/09/23 16:39
AST 19 U/L (14-36) 10/09/23 16:39
ALT 14 U/L (0-35) 10/09/23 16:39
Alkaline Phosphatase 75 U/L (38-126) 10/09/23 16:39
Data Reviewed
-
Lab Data: Labs Reviewed by me
Old Records: Reviewed
Impression/Plan
-
IMPRESSION:
PLAN:
# Sepsis (leukocytosis, tachycardia ) secondary to recurrent UTI
-Urinalysis showing worsening pyuria
-Recent urine culture with ESBL E. coli sensitive to Zosyn
-Check urine culture, blood culture
-IV fluids
-Zosyn
-Renal ultrasound pending to evaluate for stone
# Hyperglycemia secondary to UTI
#Type 1 diabetes
-Blood sugar 223
-IV fluids given
-Diabetic diet
-Continue insulin pump
Chronic back pain
-Continue ibuprofen
Prior opioid use disorder
Restless leg syndrome
Cervical intraepithelial neoplasia
Anxiety/depression
Full code
DVT prophylaxis�heparin
Diabetic diet
[2023-10-09] MEDS: NSS 500 IV (17:43)
[2023-10-09 18:00] VITALS: BP 104/57
--- NOTE | 2023-10-09 19:30 | PTCARENOTE ---
Pt arrived to unit from ED and is self-ambulatory. Pt is AAOx3, VS stable on admission. Pt reports 10/10 pain throughout body; PRN Tylenol administered. Pt oriented to room, call ghotra within reach.
[2023-10-09] MEDS: TYLENOL 650 MG PO (19:40)
[2023-10-09] MEDS: NSS 1000 IV (20:02)
[2023-10-09 20:48] VITALS: BP 124/56; BMI 22.6
[2023-10-09 21:40] LABS: Glucose - Point of Care 180 mg/dl (70-99)
[2023-10-09] MEDS: PATIENT'S OWN INSULIN PUMP 2.17 UNITS SC (22:28)
[2023-10-09] MEDS: MOTRIN 800 MG PO (22:32)
--- NOTE | 2023-10-09 22:40 | PTCARENOTE ---
Pt reports severe pain 10/10 despite PRN Motrin administration throughout body but concentrated in her back. Pt also reports nausea; no anti-emesis meds ordered PRN. House ENGINEERING [employer] Alyse Robins notified, orders placed for PRN IV Zofran 4mg and PO
Acetaminophen with codeine. PRN Zofran provided to pt; pt reports that 'I'll take the acetaminophen with codeine at 4 with my next antibiotic'.
[2023-10-09] MEDS: ZOFRAN 4 MG IV (23:17)
[2023-10-10 00:17] VITALS: BP 113/55
[2023-10-10] MEDS: ZOSYN 50 IV ×2 (04:15→09:07)
[2023-10-10] MEDS: TYLENOL #3 1 TABLET PO (04:17)
[2023-10-10] MEDS: ZOFRAN 4 MG IV ×2 (07:33→20:21)
[2023-10-10 07:50] VITALS: BP 133/68
[2023-10-10 07:58] LABS: Glucose - Point of Care 181 mg/dl (70-99)
[2023-10-10 08:08] LABS: ALT (SGPT) 15 U/L (0-35); AST (SGOT) 22 U/L (14-36); Albumin 3.8 g/dl (3.5-5.0); Alkaline Phosphatase 90 U/L (38-126); Blood Urea Nitrogen 10 mg/dl (7-17); Calcium 8.7 mg/dl (8.4-10.2); Carbon Dioxide 24 mmol/L (22-30); Chloride 105 mmol/L (98-107); Estimated Creatinine Clearance 102 ml/min; Glucose 188 mg/dl (70-99); Potassium 3.6 mmol/L (3.5-5.1); Sodium 137 mmol/L (135-145); Total Bilirubin 0.7 mg/dl (0.2-1.3); Total Protein 6.6 g/dl (6.3-8.2); eGFR > 60.00
[2023-10-10] MEDS: PATIENT'S OWN INSULIN PUMP 3.29 UNITS SC (09:04)
[2023-10-10] MEDS: NSS 1000 IV ×2 (09:06→21:54)
[2023-10-10] MEDS: MOTRIN 800 MG PO ×2 (09:08→21:55)
[2023-10-10 09:20] LABS: % Basophils 0.2 % (0-2); % Eosinophils 0.1 % (0-6); % Immature Granulocytes 0.5 % (0-0.5); % Lymphocytes 5.6 % (20.5-51.1); % Monocytes 7.4 % (1.7-9.3); % Neutrophils 86.2 % (42.2-75.2); Absolute Immature Granulocytes 0.1 10^3/uL (0-0.05); Absolute Lymphocytes 0.9 10^3/uL (1.2-3.4); Absolute Monocytes 1.3 10^3/uL (0.1-0.6); Absolute Neutrophils 14.5 10^3/uL (1.4-6.5); Hematocrit 33.9 % (37.0-47.0); Hemoglobin 11.3 g/dL (12.0-16.0); Mean Corp Hgb Conc. 33.3 g/dL (33.0-37.0); Mean Corpuscular Hgb 30.3 pg (27.0-31.0); Mean Corpuscular Volume 90.9 fL (81.0-99.0); Nucleated Red Blood Cells % 0 %; Platelet Count 224 10^3/uL (130-400); Red Blood Cell Count 3.73 10^6/uL (4.20-5.40); Red Cell Dist. Width 13.2 % (11.5-14.5); White Blood Cell Count 16.8 10^3/uL (4.8-10.8)
[2023-10-10] MEDS: PATIENT'S OWN INSULIN PUMP 1.8 UNITS SC (11:45)
[2023-10-10 12:13] LABS: Glucose - Point of Care 159 mg/dl (70-99)
--- NOTE | 2023-10-10 13:11 | W.PN.HOSP.TC ---
Today's Communication/Plan
-
see bold
Assessment / Plan
Assessment / Plan
Pt seen and examind with nurse Marcela Joy present at bedside:
Gen: NAD, AAOx3.
Eyes: EOMI, PERRLA, no scleral icterus.
Neck: supple.
CV: RRR, +S1/S2, no m/r/g.
Resp: CTAB, no rales, wheezes, or rhonchi.
Abd: +BS, soft, NT, ND
Skin: No rashes.
Neuro: CN 2-12 intact, non-focal.
Psych: Normal mood and affect.
Renal U/S: Unremarkable exam
Sepsis due to recurrent UTI:
-Urinalysis showing worsening pyuria
-Recent urine culture with ESBL E. coli sensitive to Zosyn
-follow UCx/BCxs
-cont IVFs/Zosyn
-c/s ID
DM1:
-with hyperglycemia due to acute UTI
-Diabetic diet
-Continue insulin pump
Chronic back pain: Continue ibuprofen
Prior opioid use disorder
Restless leg syndrome
Cervical intraepithelial neoplasia
Anxiety/depression
Patient's mother updated at bedside.
FULL/heparin
Anticipated Discharge: 24 - 48 hours
Subjective/Interval History
-
Date of Service: October 10, 2023
No new complaints.
Objective Data
-
Labs:
Laboratory Results
10/10/23
06:49
WBC 16.8 H
Hgb 11.3 L
Hct 33.9 L
Plt Count 224
Sodium 137
Potassium 3.6
Chloride 105
Carbon Dioxide 24
BUN 10
Creatinine 0.6
Glucose 188 H
Calcium 8.7
Total Bilirubin 0.7
AST 22
ALT 15
Alkaline Phosphatase 90
Vital Signs:
Vital Signs
Temp Pulse Resp BP Pulse Ox
98.0 F 88 18 133/68 98
10/10/23 07:50 10/10/23 07:50 10/10/23 07:50 10/10/23 07:50 10/10/23 09:15
I&O
10/09/23 10/10/23 10/11/23
06:59 06:59 06:59
Intake Total 1380 / 1380
Balance 1380 / 1380
--- NOTE | 2023-10-10 13:19 | PN.DE.MGMTRT ---
Insulin Management
- -
10/10/2023 Diabetes Management Consult, Insulin pump
Patient admitted 10/08 with recurring UTI. PMH UTI 09/25 with hyperglycemia, type 1 diabetes, opioid use disorder, restless leg syndrome, chronic back pain, scoliosis, sciatica, cervical intraepithelial neoplasia, anxiety/depression. A1C pending.
Patient currently using tandem tslim pump with DexCom G6, novolog insulin and auto soft XC infusion set.
Pump settings:
basal correction carb ratio target
12am .8 40 10 110
3am .9 40 10 110
6:30am .8 40 10 110
7am .9 40 10 110
10pm .8 40 10 110
24 hour basal total 26.05
Patient is using pump appropriately, glucose running high due to infection but patient is correcting appropriately. Will follow and based on A1C may recommend pump changes.
Diabetes History
- -
Type of Diabetes: 1
Pre-Admission Diabetes Regimen
10/09/23 10/10/23
16:39 06:49
Creatinine 0.5 L 0.6
Insulin Pump Settings
IP Diabetes Regimen
10/09/23 10/09/23 10/10/23
16:39 21:39 06:49
Glucose 223 H 188 H
POC Glucose 180 H
10/10/23 10/10/23
07:56 12:12
Glucose
POC Glucose 181 H 159 H
Meal type: Breakfast
Amount consumed: 75%
Patient Education
--- NOTE | 2023-10-10 14:37 | CM ---
Addendum entered by Kasandra Grajeda 10/10/23 15:55:
Patient will require IV antibiotics upon discharge, script on chart, faxed to [facility]. Midline to be placed tomorrow. Patient aware of IV antibiotic needs, agreeable to clinicals sent to [facility].
Original Note:
Patient seen bedside with mother, initial assessment completed. Patient resides with mother and father in a two story home, two steps to enter. Patient is independent with ADLs/IADLS, denies DME, VN, or SNF. Patient PCP Julio Cesar Montero, pharmacy
[facility] in [place]. Patient confirms she has prescription coverage. Patient denies food, housing/utility, and transportation insecurities. CM will continue to follow for all discharge planning needs.
Plan; home no needs likely.
[2023-10-10 15:00] VITALS: BP 110/64
--- NOTE | 2023-10-10 15:15 | CON.ID ---
Consultation
-
Date/Time Consultation Requested: 10/10/23 13:14
Date/Time Consultation Performed: 10/10/23 15:16
Requesting Provider: Dr Mckeon
Performing Provider: Dr Marcelino
Reason for Consultation: recurrent UTI
Chief Complaint / Past History
Chief Complaint
chills
History of Present Illness
Ms Kaplan is a 43 year old female with history of Dm1 on insulin pump, opioid use disorder who presented here yesterday for shaking chills, body aches, acute on chronic bilateral back pain, nausea without vomiting. No dysuria or abdominal pain. No
diarrhea She noted increasing blood glucoses at home. Of interest patient works at a [employer] facility where she is routinely exposed to MDRO pathogens. Additionally reports she is feqeuntly dehydrated.
Since arrival here no fevers, bp stable, wb 16.8, hgb 11.3, plt 224, L shift is noted, cr 0.6, a1c 8, t bili 0.7, ast 22, alt 15, alk phos 90, urine culture GNR 100K, a blood culture has been sent - no growth to date, she is currently on
piperacillin tazobactam, has a recent history of an ESBL e coli UTI 09/26/23 treated with a 3 day course of zosyn, renal US was unremarkable,
Past History
Additional Past Medical History:
type 1 diabetes on insulin pump, opioid use disorder, restless leg syndrome, chronic back pain, scoliosis, sciatica, cervical intraepithelial neoplasia, anxiety/depression
Past Surgical History: None
Allergy History:
No Known Allergies Allergy (Verified 10/09/23 16:54)
Medications Reviewed: Yes
Social History
Tobacco: Non-Smoker
Alcohol: None
Drug: None
Personal: Other (has a young son)
Review of Systems
Review of Systems
General: Fever and Chills
All systems: All other systems were reviewed and were negative
Vital Signs
Temp Pulse Resp BP Pulse Ox
98.0 F 88 18 133/68 98
10/10/23 07:50 10/10/23 07:50 10/10/23 07:50 10/10/23 07:50 10/10/23 09:15
Physical Exam
Physical Exam
Constitutional: No Acute Distress
Cardiovascular: Regular Rate and S1/S2; Negative Murmur or Rub
Pulmonary: Clear and Symmetric; Negative Wheezes, Rales or Rhonchi
Gastrointestinal: Soft, Non Tender, Non Distended and Normal Bowel Sounds
Genito-Urinary: Clear Urine; Negative Suprapubic Tenderness or CVA Tenderness
Skin: Warm and Dry; Negative Rash or Jaundice
Lab / Diagnostic Study Results
10/10/23 06:49
10/10/23 06:49
Abs Immat Gran (auto) 0.1 10^3/uL (0-0.05) H 10/10/23 06:49
Absolute Neuts (auto) 14.5 10^3/uL (1.4-6.5) H 10/10/23 06:49
Absolute Lymphs (auto) 0.9 10^3/uL (1.2-3.4) L 10/10/23 06:49
Absolute Monos (auto) 1.3 10^3/uL (0.1-0.6) H 10/10/23 06:49
Absolute Basos (auto) 0.0 10^3/uL (0-0.2) 10/10/23 06:49
Immature Gran % 0.5 % (0-0.5) 10/10/23 06:49
Neutrophils % 86.2 % (42.2-75.2) H 10/10/23 06:49
Lymphocytes % 5.6 % (20.5-51.1) L 10/10/23 06:49
Monocytes % 7.4 % (1.7-9.3) 10/10/23 06:49
Eosinophils % 0.1 % (0-6) 10/10/23 06:49
Basophils % 0.2 % (0-2) 10/10/23 06:49
Lactic Acid 0.8 mmol/L (0.7-2.0) 10/09/23 16:39
Ur Squamous Epith Cells 16-20 /LPF (Few) 10/09/23 15:57
Microbiology Results
Micro:
10/09/23 15:57 Urine Culture - Preliminary
Urine Gram negative bacilli
10/09/23 16:39 Blood Culture - Pending
Blood/Venous
Assessment / Plan
Pyelonephritis
Probable ESBL E coli UTI
Recent history of ESBL E coli UTI
DM1 with fair control on insulin pump
- blood culture is progress
- 100 K GNR IDd on the urine culture - suspect this may be the same or a similar isolate to what was seen 2 weeks ago, treated with short course of zosyn
- unlikely to have effective oral antibiotics options - fosfomycin not an option when there is a concern for pyelonephritis
- script to case manager specialist to check cost of ertapenem
- if isolate is ecoli, then midline tomorrow and will arrange a 7 day course of ertapenem
- encouraged probiotics and hydration to decrease risk of recurrent UTIs, if she has a third episode can further intensify preventative measures
[2023-10-10] MEDS: INVANZ 60 MG IV (15:56)
[2023-10-10 16:30] LABS: Glucose - Point of Care 287 mg/dl (70-99)
[2023-10-10] MEDS: PATIENT'S OWN INSULIN PUMP 6.41 UNITS SC (16:41)
[2023-10-10] MEDS: TYLENOL 650 MG PO (16:41)
[2023-10-10 21:51] LABS: Glucose - Point of Care 231 mg/dl (70-99)
[2023-10-10] MEDS: PATIENT'S OWN INSULIN PUMP 2.71 UNITS SC (21:58)
[2023-10-10 23:55] VITALS: BP 125/61
[2023-10-11 00:24] VITALS: BP 125/61
[2023-10-11 07:04] LABS: Glucose - Point of Care 149 mg/dl (70-99)
[2023-10-11 07:55] VITALS: BP 120/72
--- NOTE | 2023-10-11 08:35 | PN.DE.MGMTRT ---
Insulin Management
- -
10/11/2023 Diabetes Management Consult, Insulin pump
Patient admitted 10/08 with recurring UTI. PMH UTI 09/25 with hyperglycemia, type 1 diabetes, opioid use disorder, restless leg syndrome, chronic back pain, scoliosis, sciatica, cervical intraepithelial neoplasia, anxiety/depression. A1C 8, cr .6
eGFR >60. Patient currently using tandem tslim pump with DexCom G6, novolog insulin and auto soft XC infusion set.
Patient is awake alert and oriented, resting in bed. Able to discuss current pump settings and elevated glucose. Agreed that infection most likely biggest factor. Encouraged to correct when glucose trends up.
Pump settings:
basal correction carb ratio target
12am .8 40 10 110
3am .9 40 10 110
6:30am .8 40 10 110
7am .9 40 10 110
10pm .8 40 10 110
24 hour basal total 26.05
Patient is using pump appropriately, glucose running high due to infection but patient is correcting appropriately.
Diabetes History
- -
Type of Diabetes: 1
Pre-Admission Diabetes Regimen
Lab Results
Hemoglobin A1c 8.0 % (4.0-5.6) H 10/10/23 06:49
Insulin Pump Settings
IP Diabetes Regimen
10/10/23 10/10/23 10/10/23
12:12 16:28 21:50
POC Glucose 159 H 287 H 231 H
10/11/23
07:03
POC Glucose 149 H
Meal type: Breakfast
Amount consumed: 75%
Patient Education
[2023-10-11] MEDS: ZOFRAN 4 MG IV (09:23)
[2023-10-11] MEDS: PATIENT'S OWN INSULIN PUMP 2.1 UNITS SC (09:24)
--- NOTE | 2023-10-11 10:42 | CM ---
construction engineering manager reviewed patient's chart and plan is for home with IV ABX for 6 days, referral was sent to [facility] and per Chelsi at [facility] they will be at the hospital today at 11am to teach patient IV ABX therapy and also to discuss coverage
with patient's insurance.
Plan; Will wait on discussion with with patient on coverage for home infusion.
--- NOTE | 2023-10-11 10:53 | W.PN.HOSP.TC ---
Today's Communication/Plan
-
d/c
Assessment / Plan
Assessment / Plan
Pt seen and examind with nurse Zac Duval present at bedside:
Gen: NAD, AAOx3.
Eyes: EOMI, PERRLA, no scleral icterus.
Neck: supple.
CV: remains RRR, +S1/S2, no m/r/g.
Resp: remains CTAB, no rales, wheezes, or rhonchi.
Abd: +BS, soft, NT, ND
Skin: No rashes.
Neuro: remains CN 2-12 intact, non-focal.
Psych: Normal mood and affect.
10/09/23 15:57 Urine Urine Culture - Final
Escherichia coli - ESBL
10/09/23 16:39 Blood/Venous Blood Culture - Preliminary
No Growth in 24 hours- Final report to follow
Renal U/S: Unremarkable exam
Sepsis due to acute, recurrent UTI/pyelonephritis due to ESBL E coli:
-Urinalysis showed worsening pyuria
-UCx with ESBL E. coli sensitive to Zosyn
-OK for discharge on IV Invanz as per ID
DM1:
-with hyperglycemia due to acute UTI
-Diabetic diet
-Continue insulin pump
Chronic back pain: Continue ibuprofen
Prior opioid use disorder
Restless leg syndrome
Cervical intraepithelial neoplasia
Anxiety/depression
FULL/heparin
Total time spent on d/c = 31 min. This included today's physical exam, progress note, review of laboratory and diagnostic data, preparation of discharge documents and prescriptions, and discussions about the pt's hospital course and discharge plan
with the patient and other medical chemist involved in the patient's care.
Anticipated Discharge: Today
Subjective/Interval History
-
Date of Service: October 11, 2023
Pt feels overall better than yesterday.
Objective Data
-
Vital Signs:
Vital Signs
Temp Pulse Resp BP Pulse Ox
98.2 F 75 16 120/72 98
10/11/23 07:55 10/11/23 07:55 10/11/23 07:55 10/11/23 07:55 10/11/23 07:55
I&O
10/10/23 10/11/23 10/12/23
06:59 06:59 06:59
Intake Total 1380 / 1380 1440 / 1440 960 / 960
Balance 1380 / 1380 1440 / 1440 960 / 960
[2023-10-11 11:37] LABS: Glucose - Point of Care 168 mg/dl (70-99)
--- NOTE | 2023-10-11 11:50 | W.PN.ID1 ---
Date of Service
Date of Service: October 11, 2023
Today's Communication
- place midline for a 7 day course of ertapenem
- encouraged probiotics and hydration to decrease risk of recurrent UTIs, if she has a third episode can further intensify preventative measures
- stable for dc after home iv antibiotics arranged
Assessment / Plan
Pyelonephritis
Probable ESBL E coli UTI
Recent history of ESBL E coli UTI
DM1 with fair control on insulin pump
- blood culture is progress no growth to date
- 100 K ESBL E coli from the urine
- place midline for a 7 day course of ertapenem
- encouraged probiotics and hydration to decrease risk of recurrent UTIs, if she has a third episode can further intensify preventative measures
- stable for dc after home iv antibiotics arranged
Chief Complaint
-: UTI
Subjective / Review of Systems
afebrile
bp stable
no cbc this am
reports feeling better - no flank pain, no further chills, looking forward to discharge
Vital Signs / Physical Exam
Vital Signs
Vital Signs
Temp Pulse Resp BP Pulse Ox
98.2 F 75 16 120/72 98
10/11/23 07:55 10/11/23 07:55 10/11/23 07:55 10/11/23 07:55 10/11/23 07:55
Physical Exam
Constitutional: No Acute Distress
Cardiovascular: Regular Rate and S1/S2; Negative Murmur or Rub
Pulmonary: Clear and Symmetric; Negative Wheezes or Rales
Gastrointestinal: Soft, Non Tender, Non Distended and Normal Bowel Sounds
Genito-Urinary: Clear Urine; Negative Suprapubic Tenderness or CVA Tenderness
Skin: Warm and Dry; Negative Rash or Jaundice
Objective Data
Lab Data
Lab Results
10/10/23 06:49
10/10/23 06:49
Estimated Creat Clear 102 ml/min 10/10/23 06:49
Lactic Acid 0.8 mmol/L (0.7-2.0) 10/09/23 16:39
Total Bilirubin 0.7 mg/dl (0.2-1.3) 10/10/23 06:49
AST 22 U/L (14-36) 10/10/23 06:49
ALT 15 U/L (0-35) 10/10/23 06:49
Alkaline Phosphatase 90 U/L (38-126) 10/10/23 06:49
Most recent labs reviewed.
Micro Results:
10/09/23 15:57 Urine Culture - Final
Urine Escherichia coli - ESBL
10/09/23 16:39 Blood Culture - Preliminary
Blood/Venous No Growth in 24 hours- Final report to follow
[2023-10-11] MEDS: NSS IV (12:36)
[2023-10-11] MEDS: PATIENT'S OWN INSULIN PUMP 2.23 UNITS SC (12:36)
--- NOTE | 2023-10-11 13:01 | W.DCSUMMARY ---
Discharge Summary
Discharge Data
Date of Admission: 10/09/23
Date of Discharge: 10/11/23
-
Pending Results: No
Hospital Course
Primary diagnoses:
Sepsis due to acute, recurrent urinary tract infection/pyelonephritis due to ESBL E coli
Secondary diagnoses:
Type 1 diabetes mellitus
Prior opioid use disorder
Restless leg syndrome
Cervical intraepithelial neoplasia
Anxiety
Depression
Consultants:
Infectious disease
Imaging:
Renal U/S: Unremarkable exam
Hospital course: 43-year-old female who presented with a chief complaint of chills as outlined in the H&P done on admission. She was found to have sepsis due to acute, recurrent UTI/pyelonephritis due to ESBL E coli. She was initially on Zosyn and
had improvement in her symptoms. She was switched to Invanz via midline on discharge for 7-day course. She was discharged in medically stable condition peer
Discharge Plan
-
Patient Disposition: Home (Routine Discharge)
Discharge Diagnosis/Procedures: Pyelonephritis
Condition: Good
Diet: Diabetic, Carb Controlled
Activity: As tolerated
Driving Restrictions: As prior to admission
Blood Work: CBC and BMP in 1 week, script from PCP
Referrals:
Julio Cesar Montero DO [Family Provider] - in less than 1 week
Prescriptions:
New
Ertapenem [Invanz] 1000 MG
0.9% Sodium Chloride [Nss] 50 ML
120 mls/hr IV Q24H
Ordered By: Stuart Mckeon MD
Last Taken: 10/10/23 15:56 60 mls
Continued
insulin lispro [Humalog U-100 Insulin] 100 UNIT/ML solution
0 unit SC .VIA PUMP
ibuprofen 800 mg tablet
800 mg PO Q8HPRN PRN (Reason: mild to moderate pain)
acetaminophen-codeine 300-30 mg tablet
1 tab PO Q6HPRN PRN (Reason: moderate pain)
Patient Comments:
10/09/2023: last filled 10/02/23, 20 tabs for 4 days from [facility]
Discharge Orders:
Discharge Patient (As Directed); Ordered 10/11/23
Ordered By: Stuart Mckeon
Discharge Date and Time
Print Language: BANGLADESHI
[2023-10-11 13:22] VITALS: BP 122/80
== END 2023-10-11 15:24 | disposition home or self-care (01) | DRG 872 ==
LOC: 4 WEST ACU 17:46
PROVIDERS: Nurse Practitioner; ADMITTING PHYSICIAN Hospitalist; ATTENDING PHYSICIAN Internal Medicine; CONSULT PHYSICIAN Student in an Organized Health Care Education/Training Program; EMERGENCY PHYSICIAN Emergency Medicine; FAMILY PHYSICIAN Family Medicine
DX: A41.9 Sepsis, unspecified organism (principal); N12 Tubulo-interstitial nephritis, not specified as acute or chronic; Z87.440 Personal history of urinary (tract) infections; F41.9 Anxiety disorder, unspecified; F32.A Depression, unspecified; E10.9 Type 1 diabetes mellitus without complications; F11.90 Opioid use, unspecified, uncomplicated; Z96.41 Presence of insulin pump (external) (internal)
CPT/HCPCS: 76775; 80053; 81003; 81015; 82962; 83036; 83605; 85025; 87040; 87077; 87086; 87186; 96365; 99285; J1335

== ENCOUNTER 2024-08-04 13:53 | Inpatient (IN) | payer BC, SELFPAY ==
[2024-08-04] VITALS (21 sets, daily range): BP systolic 92–151; BP diastolic 46–83; BMI 24.6; BMI 22.7
[2024-08-04 11:15] LABS: Glucose - Point of Care 372 mg/dl (70-99)
[2024-08-04 11:36] LABS: % Basophils 0.3 % (0-2); % Eosinophils 0.2 % (0-6); % Immature Granulocytes 0.4 % (0-0.5); % Lymphocytes 6.6 % (20.5-51.1); % Monocytes 1.9 % (1.7-9.3); % Neutrophils 90.6 % (42.2-75.2); Absolute Basophils 0.1 10^3/uL (0-0.2); Absolute Immature Granulocytes 0.1 10^3/uL (0-0.05); Absolute Lymphocytes 1.2 10^3/uL (1.2-3.4); Absolute Monocytes 0.4 10^3/uL (0.1-0.6); Absolute Neutrophils 16.8 10^3/uL (1.4-6.5); Hematocrit 39.2 % (37.0-47.0); Hemoglobin 12.9 g/dL (12.0-16.0); Mean Corp Hgb Conc. 32.9 g/dL (33.0-37.0); Mean Corpuscular Hgb 30.8 pg (27.0-31.0); Mean Corpuscular Volume 93.6 fL (81.0-99.0); Mean Platelet Volume 12.3 fL (7.4-10.4); Nucleated Red Blood Cells % 0 %; Platelet Count 253 10^3/uL (130-400); Red Blood Cell Count 4.19 10^6/uL (4.20-5.40); Red Cell Dist. Width 12.8 % (11.5-14.5); White Blood Cell Count 18.6 10^3/uL (4.8-10.8)
--- NOTE | 2024-08-04 11:45 | ED.GENMED ---
History of Present Illness
General
Chief Complaint: Blood Sugar Problem
Source: patient
Exam Limitations: none
Time Seen by Provider: 08/04/24 11:32
History of Present Illness
History of Present Illness:
43yoF with a history of type 1 diabetes with insulin pump presenting for evaluation of vomiting. She changed her insulin pump yesterday and noticed that cartridge was bent but was still administering insulin. Her glucose was around 300 when she
went to bed but she was feeling well. She woke up this morning and her glucose was reading high. She did change out her insulin pump to see if that would help but her glucose continued to read high throughout the morning. She started to vomit
around 7:30 AM this morning and has been vomiting continuously since that time. She believes she is in diabetic ketoacidosis. She denies any diarrhea or fevers. Of note, patient had a dental procedure 3 weeks ago and had URI symptoms about 4 days
ago.
Past History
Past History
ED Past Medical History: IDDM and Other (Restless leg syndrome, chronic back pain, scoliosis, sciatica, opioid use disorder, cervical neoplasia, anxiety, depression)
ED Past Surgical History: Gynecological (cervical LEEP surgery)
Social History
Tobacco: Former smoker
Alcohol: None
Drug: Former user
Personal: Single
Living: alone
Employment: Employed
Family History
Family History: Diabetes
Phy Exam
Physical Exam
Physical Exam:
Retching on exam, appears ill
General Physical Exam
General Presentation: moderate distress
General Skin: warm and dry
General Habitus: normal
General Mental: alert
ENT Exam
ENT Exam: normocephalic
Cardiovascular Exam
Cardiovascular Exam: regular rate/rhythm
Pulmonary Exam
Pulmonary Exam: lungs clear, no respiratory distress, no rales, no crackles and no rhonchi
Gastrointestinal Exam
Gastrointestinal Exam: non tender, soft and non distended
Neurological Exam
Neurological Exam: alert
Richy Coma Scale
Eye Opening: Spontaneous
Verbal Response: Oriented
Motor Response: Obeys Commands
GCS Total Score: 15
Skin Exam
Skin Exam: normal color and warm/dry
Psychiatric Exam
Psychiatric Exam: normal mood/affect
Course
Orders/Labs/Results
Orders:
Orders
08/04/24 Breakfast
NPO
Allow oral meds: Yes
Allow clear liquids: No
08/04/24 11:17
Test Result ONCE
08/04/24 11:26
B-Hydroxybutyrate Urgent
Comment: ADD ON
Complete Blood Count/With Diff Urgent
Comprehensive Metabolic Panel Urgent
HCG, Serum Qualitative Screen Urgent
Lipase Urgent
Magnesium Urgent
08/04/24 11:38
Add On- LAB Urgent
Tests Added?: magnesium, lipase
Electrocardiogram (*1) Urgent
Reason for Study: QTc Monitoring
Cardiac Monitoring- Treatment ONCE
Ondansetron Injectable [Zofran] 4 mg IV NOW STA
08/04/24 11:39
0.9% Sodium Chloride 1000 ml [Nss] 2,000 ml IV BOLUS
08/04/24 12:00
COVID-19 Antigen Urgent
Source: Nasal Swab
Venous Blood Gas Urgent
%Oxygen/Room Air: room air
Influenza A+B Rapid Molecular Urgent
TORI Source: Nasal Swab
Specimen Description:
08/04/24 12:07
Lactic Acid Urgent
08/04/24 12:37
Bedside Glucose- Treatment Q1H
IV Insert/Care/Rem.- Treatment PRN
Reg Insulin 100 Units/100 ml [Novolin R Insulin Infusion] 100 units in 100 ml IV NOW
08/04/24 13:00
KCl 20 Meq/0.9%Sodchl 1000 ml [NSS with KCL 20 MEQ] 20 meq in 1,000 ml IV 250 mls/hr
08/04/24 13:05
Admit/Transfer Patient As Directed
Co-Sign Provider:
Level of Care: Inpatient admission
Assign to:: ICU
Physician / Group: dorene
Diagnosis: DKA
Reason for Hospitalization: DKA
Expected length of stay greater than two midnights?: Yes
ELOS- Estimated Length of Stay in days: 3
I certify the patient meets the requirements for IP care: Yes
Ketorolac [Toradol] 15 mg IV NOW STA
08/04/24 13:06
Code Status As Directed
Resuscitation Status: Full Code
PRN Pain Medication Management As Directed
May give lesser potent ordered pain med per pt: Yes
preference::
Protocol:: Medication orders for pain may be administered in a
manner that supports deferring to patient preference
when the pt is:
- Requesting an ordered lesser potent pain medication.
Least to most potent pain medications are defined
as: acetaminophen < NSAID < tramadol < opioids
(morphine, oxycodone, hydromorphone).
- Requesting a lesser dose of the same medication IF
ORDERED.
- Requesting a less intrusive route of administration
if both routes are prescribed by the provider (PO <
IV).
08/04/24 13:35
Basic Metabolic Panel Q2H
08/04/24 15:00
Basic Metabolic Panel Q2H
08/04/24 16:28
Reg Insulin 100 Units/100 ml [Novolin R Insulin Infusion] 100 units in 100 ml IV PER PROTOCOL
Currently infusing. Continue current dose and titrate:: Yes
08/04/24 16:47
Basic Metabolic Panel Q2H
08/04/24 17:05
Melatonin 3 mg PO HSPRN PRN
Promethazine [Phenergan] 12.5 mg 0.9% Sodium Chloride 50 ml [Nss] 50 ml IV Q4HPRN
Tramadol HCl [Ultram] 100 mg PO Q6HPRN PRN
08/04/24 17:05
Diabetes Education Consult Routine
Reason for Consult: Insulin Instruction
Newly Diagnosed?: No
Diabetes Management by Nurse Practitioner Routine
Consulting Provider: Angelina Barber
Was provider already notified?: Yes
Activity As Directed
Activity Level: As Tolerated
Bedside Glucose Monitoring As Directed
Frequency: Q1H
Intake/ Output As Directed
Frequency: Per unit guidelines
Notify MD As Directed
Notify physician if: Nurse to contact provider when glucose reaches 250 to obtain orders for D5 0.45 NaCl
Vital Signs As Directed
Frequency: Per unit guidelines
DX Deep Vein Thrombosis Video Routine
08/04/24 18:00
Lactic Acid Q6H
Enoxaparin Sodium [Lovenox] 40 mg SC QPM
08/04/24 19:29
Ibuprofen [Motrin] 800 mg PO Q6HPRN PRN
08/04/24 20:00
Basic Metabolic Panel Q4
08/04/24 22:00
norgestrel-ethinyl estradiol [Elinest] See Dose Instructions PO HS
08/05/24 00:00
Basic Metabolic Panel Q4
Lactic Acid Q6H
08/05/24 04:00
Basic Metabolic Panel Q4
08/05/24 06:00
Complete Blood Count/No Diff IN AM
Glycohemoglobin (HgbA1c) IN AM
Lactic Acid Q6H
CR Chest - 2 Views Routine
Comment:
Reason For Exam: sob
08/05/24 08:00
Basic Metabolic Panel Q4
08/05/24 12:00
Basic Metabolic Panel Q4
08/05/24 16:00
Basic Metabolic Panel Q4
08/06/24 06:00
Complete Blood Count/No Diff IN AM
08/07/24 06:00
Complete Blood Count/No Diff IN AM
Abnormal Lab Results
08/04/24 08/04/24 08/04/24
11:13 11:26 12:00
WBC 18.6 H 10^3/uL
(4.8-10.8)
RBC 4.19 L 10^6/uL
(4.20-5.40)
MCHC 32.9 L g/dL
(33.0-37.0)
MPV 12.3 H fL
(7.4-10.4)
Abs Immat Gran (auto) 0.1 H 10^3/uL
(0-0.05)
Absolute Neuts (auto) 16.8 H 10^3/uL
(1.4-6.5)
Neutrophils % 90.6 H %
(42.2-75.2)
Lymphocytes % 6.6 L %
(20.5-51.1)
VBG pH 7.21 L
(7.32-7.43)
VBG pCO2 34 L mmHg
(35-48)
VBG pO2 69 H mmHg
(30-50)
VBG HCO3 13.6 L mmol/L
(22-27)
Carbon Dioxide 12 L* mmol/L
(22-30)
BUN 23 H mg/dl
(7-17)
Glucose 389 H mg/dl
(70-99)
Lactic Acid
B-Hydroxybutyrate 5.54 H mmol/L
(0.02-0.27)
POC Glucose 372 H mg/dl
(70-99)
08/04/24 08/04/24 08/04/24
12:07 13:27 13:35
WBC
RBC
MCHC
MPV
Abs Immat Gran (auto)
Absolute Neuts (auto)
Neutrophils %
Lymphocytes %
VBG pH
VBG pCO2
VBG pO2
VBG HCO3
Carbon Dioxide 8 L* mmol/L
(22-30)
BUN 24 H mg/dl
(7-17)
Glucose 388 H mg/dl
(70-99)
Lactic Acid 2.4 H mmol/L
(0.7-2.0)
B-Hydroxybutyrate
POC Glucose 365 H mg/dl
(70-99)
08/04/24 11:26
08/04/24 13:35
Vital Signs
Initial and Last Documented VS:
Initial Vital Signs
Temp Pulse Resp BP Pulse Ox
98.0 F 102 18 125/72 98
08/04/24 11:11 08/04/24 11:11 08/04/24 11:11 08/04/24 11:11 08/04/24 11:11
Last Documented Vital Signs
Temp Pulse Resp BP Pulse Ox
98 F 92 18 110/58 100
08/04/24 17:15 08/04/24 17:30 08/04/24 17:30 08/04/24 17:30 08/04/24 17:30
MDM/Problems Addressed
Differential Diagnosis Includes:
43yoF here with high glucose reading and vomiting. Hx of T1DM. Changed her insulin pump yesterday and is worried that it may be malfunctioning. She is retching on exam and is ill appearing. Differential diagnosis includes but is not limited to: DKA,
HHS, dehydration, gastroenteritis
Initial ED plan: Check CBC, CMP, magnesium, VBG, beta hydroxybutyrate, and EKG. 2L NS bolus and IV Zofran for nausea.
*EKG
EKG Intrepretation Date: 08/04/24
Heart Rate: 102
Rate: tachycardiac
Rhythm: sinus
Starkweather: normal axis
Interval: normal interval
QRS Pattern: normal QRS
Ischemia: no ischemia
*Critical Care Note
Total Time (30-74mins, 75-104mins- exclusive of procedures): 35
Update Note
Update Note:
Labs reveal a glucose of 389. Bicarb 12 and venous pH 7.21. Serum ketones positive. Patient meeting criteria for DKA. DKA protocol initiated with maintenance fluids containing potassium as well as an insulin drip. Patient admitted for further
management.
ED Attending Note
-
Portions of this chart may have been created with voice recognition software.� Occasional wrong word or��sound alike� substitutions may have occurred due to the inherent limitations of voice recognition software.
Discharge Plan
Departure
Patient Disposition: Admit
Date of Disposition: 08/04/24
Time of Disposition: 12:48
Presentation/result/management discussed w/ accepting MD/DO: Hospitalist
Discharge Problem:
DKA (diabetic ketoacidosis)
Interventions
Interventions:
*Risk Screen - Suicide Last Done: 08/04/24 11:11
*General Assessment Last Done: 08/04/24 11:35
*Neglect/Abuse Screening Last Done: 08/04/24 11:11
*ED- Fall Risk Assessment Last Done: 08/04/24 11:35
*ED COVID-19 Vaccine History Last Done: 08/04/24 11:35
*Nursing Disposition Last Done: 08/04/24 17:17
ED- Neurological Assessment Last Done: 08/04/24 11:35
Discharge Date and Time
Discharge Date/Time: 08/04/24 17:18
[2024-08-04 11:58] LABS: HCG, Serum Qualitative Screen Negative
[2024-08-04] MEDS: NSS 2000 IV (12:05)
[2024-08-04] MEDS: ZOFRAN 4 MG IV (12:10)
[2024-08-04 12:14] LABS: Venous Blood Gas B.E. -13.2 mmol/L (-4 to +4); Venous Blood Gas HCO3 13.6 mmol/L (22-27); Venous Blood Gas O2 Sat % 92.6 %; Venous Blood Gas pCO2 34 mmHg (35-48); Venous Blood Gas pH 7.21 (7.32-7.43); Venous Blood Gas pO2 69 mmHg (30-50)
[2024-08-04 12:21] LABS: ALT (SGPT) 19 U/L (0-35); AST (SGOT) 24 U/L (14-36); Albumin 4.7 g/dl (3.5-5.0); Alkaline Phosphatase 84 U/L (38-126); Blood Urea Nitrogen 23 mg/dl (7-17); Calcium 9.8 mg/dl (8.4-10.2); Carbon Dioxide 12 mmol/L (22-30); Chloride 101 mmol/L (98-107); Estimated Creatinine Clearance 68 ml/min; Glucose 389 mg/dl (70-99); Lipase 64 U/L (23-300); Magnesium 1.7 mg/dl (1.6-2.3); Potassium 4.6 mmol/L (3.5-5.1); Sodium 138 mmol/L (135-145); Total Bilirubin 1.3 mg/dl (0.2-1.3); Total Protein 7.7 g/dl (6.3-8.2); eGFR > 60.00
[2024-08-04 12:33] LABS: Lactic Acid 2.4 mmol/L (0.7-2.0)
[2024-08-04 12:40] LABS: COVID-19 Antigen Negative (Negative)
--- NOTE | 2024-08-04 12:51 | HPS.HSE ---
Family Physician
-
Family Physician:
Chief Complaint
-
vomitting
History of Present Illness
43yoF with a history of type 1 diabetes with insulin pump presenting for evaluation of vomiting since this morning. She changed her insulin pump yesterday and noticed that cartridge was bent but was still administering insulin but not enough to
cover her blood sugar. Her glucose was around 300 when she went to bed but she was feeling well. She woke up this morning and her glucose was reading high. She did change out her insulin pump to see if that would help but her glucose continued
to read high throughout the morning. She denies any diarrhea or fevers. stated chills. denied WILLETT, dizzy or syncope. denied dysuria or hematuria. patient is complaining of generalized achiness.
upon arrival she was noted in DKA. initiated on insulin drip, fluids. admitting for further managment.
Medical History
Past Medical History
Past Medical History: Reports Other
Additional Past Medical History:
b/l shoulder capsulitis.
Cervical radiculopathy
Anxiety
Type 1 diabetes
HPV/condyloma
Past Surgical History: Reports Other
Additional Past Surgical History:
Cervix LEEP,
Social History
Tobacco: Former Smoker
Alcohol: None
Drug: Former User
Living: With Family
Employment: Employed
Family History
Family History: Not pertinent
Allergies / Home Medications
Allergies reflects when Allergies were last updated in [facility].
Home Medications with original date entered in [facility]
Allergy/Medication List:
Allergies
Allergy/AdvReac Type Severity Reaction Status Date / Time
No Known Allergies Allergy Verified 08/04/24 11:16
Home Medications
Patient Own Insulin Pump 1 sliding scale dose SC .VIA INSULIN LISPRO 08/04/24
ibuprofen 800 mg tablet 800 mg PO Q6HPRN PRN mild pain 08/04/24
melatonin 3 mg tablet 3 mg PO HSPRN PRN sleep 08/04/24
norgestrel 0.3 mg-ethinyl estradiol 30 mcg tablet (Elinest) 1 tab PO HS 08/04/24
Review of Systems
-
Constitutional: Reports No Symptoms
EENT: Reports No Symptoms
Respiratory: Reports No Symptoms
Cardiac: Reports No Symptoms
Abdomen/GI: Reports Vomiting
: Reports No Symptoms
Musculoskeletal: Reports No Symptoms
Skin: Reports No Symptoms
Neurological: Reports No Symptoms
Endocrine: Reports No Symptoms
Hematologic/Lymphatic: Reports No Symptoms
Psych: Reports No Symptoms
Physical Exam
Vital Signs
Vital Signs
Temp Pulse Resp BP Pulse Ox
98.0 F 99 19 151/83 100
08/04/24 11:11 08/04/24 12:15 08/04/24 12:15 08/04/24 11:33 08/04/24 12:15
Physical Exam
General: Well Developed, Well Nourished and No Apparent Distress
HEENT: NormoCephalic, Moist mucous membranes and Atraumatic
Respiratory: Clear
Cardiac: S1/S2 and Regular Rhythm; No Murmur or Rub
GI: Soft, Non Tender, Non Distended and Normal Bowel Sounds; No Organomegaly
Rectal: Deferred by Provider
Musculoskeletal: No Clubbing, No Cyanosis and No Edema
Skin: No Rash
Neuro: AO x 3 and Nonfocal/grossly intact
Psych: Calm
Laboratory Results
-
08/04/24 11:26
Laboratory Results
Lactic Acid 2.4 mmol/L (0.7-2.0) H 08/04/24 12:07
Total Bilirubin 1.3 mg/dl (0.2-1.3) 08/04/24 11:26
AST 24 U/L (14-36) 08/04/24 11:26
ALT 19 U/L (0-35) 08/04/24 11:26
Alkaline Phosphatase 84 U/L (38-126) 08/04/24 11:26
Lipase 64 U/L (23-300) 08/04/24 11:26
Data Reviewed
-
Lab Data: Labs Reviewed by me
Impression/Plan
-
# Diabetic ketoacidosis
#Type 1 diabetes
- Insulin drip continued
- Fluids continued
- Blood sugar check every 2 hours
# Leukocytosis likely chronic
- WBC 18.6, patient is afebrile
-Lactic 2.4
- Continue to monitor
# Sinus tachycardia likely from dehydration
- Fluids continued
- Continue to monitor vitals
Chronic back pain: Continue ibuprofen
Prior opioid use disorder
Restless leg syndrome
Cervical intraepithelial neoplasia
Anxiety/depression
FULL/Lovenox
[2024-08-04 13:02] LABS: B-Hydroxybutyrate 5.54 mmol/L (0.02-0.27)
[2024-08-04 13:29] LABS: Glucose - Point of Care 365 mg/dl (70-99)
[2024-08-04] MEDS: TORADOL 15 MG IV (13:29)
[2024-08-04] MEDS: NOVOLIN R INSULIN INFUSION 100 IV (13:40)
[2024-08-04] MEDS: NSS with KCL 20 MEQ 1000 IV (13:45)
[2024-08-04 14:29] LABS: Blood Urea Nitrogen 24 mg/dl (7-17); Calcium 9.1 mg/dl (8.4-10.2); Carbon Dioxide 8 mmol/L (22-30); Chloride 104 mmol/L (98-107); Estimated Creatinine Clearance 77 ml/min; Glucose 388 mg/dl (70-99); Potassium 4.8 mmol/L (3.5-5.1); Sodium 136 mmol/L (135-145); eGFR > 60.00
--- NOTE | 2024-08-04 14:35 | W.PN.UPDATE ---
Update Note
Progress Note Update
This is an addendum to the H&P written by Bri Pearson on 08/04/2024.� Patient seen and examined independently with CONTROL ANALYST.
43-year-old female past medical history of type 1 diabetes on insulin pump, prior opioid use disorder, restless leg syndrome, diabetic neuropathy, cervical intraepithelial neoplasia, anxiety/depression, ESBL UTI/pyelonephritis, here for vomiting.�
Insulin pump was bent yesterday still administering insulin.� Blood sugars around 300-400 since yesterday.� No diarrhea or fever.� Dental procedure 3 weeks ago and URI symptoms 4 days ago which have resolved.� No urinary symptoms.� No abdominal pain.
Did have tooth surgery 3 weeks ago and received antibiotics at the time which she thinks is a trigger for DKA.� No facial pain at this time.
Patient tachycardic.
Labs show blood sugar 389, severe acidosis bicarb of 12, anion gap of 25.� Lactic acid 2.4.� Beta hydroxybutyrate 5.5.� COVID and flu negative.
Patient with DKA.� N.p.o., IV fluids with normal saline with potassium, monitor BMP, Accu-Cheks, insulin drip.
Promethazine as needed for nausea, tramadol as needed for neuropathic pain of legs.
[2024-08-04 14:56] LABS: Glucose - Point of Care 262 mg/dl (70-99)
[2024-08-04 15:27] LABS: Blood Urea Nitrogen 22 mg/dl (7-17); Calcium 8.2 mg/dl (8.4-10.2); Carbon Dioxide 10 mmol/L (22-30); Chloride 112 mmol/L (98-107); Estimated Creatinine Clearance 77 ml/min; Glucose 274 mg/dl (70-99); Potassium 4.3 mmol/L (3.5-5.1); Sodium 139 mmol/L (135-145); eGFR > 60.00
[2024-08-04 15:47] LABS: Glucose - Point of Care 202 mg/dl (70-99)
[2024-08-04 16:36] LABS: Glucose - Point of Care 171 mg/dl (70-99)
[2024-08-04 17:07] LABS: Lactic Acid 1.6 mmol/L (0.7-2.0)
[2024-08-04 17:16] LABS: Blood Urea Nitrogen 20 mg/dl (7-17); Calcium 7.8 mg/dl (8.4-10.2); Carbon Dioxide 11 mmol/L (22-30); Chloride 117 mmol/L (98-107); Estimated Creatinine Clearance 87 ml/min; Glucose 164 mg/dl (70-99); Potassium 4.9 mmol/L (3.5-5.1); Sodium 140 mmol/L (135-145); eGFR > 60.00
[2024-08-04 17:36] LABS: Glucose - Point of Care 137 mg/dl (70-99)
[2024-08-04] MEDS: D5/0.9% with KCL 20 MEQ 1000 IV (17:54)
[2024-08-04] MEDS: LOVENOX 40 MG SC (17:55)
[2024-08-04 18:33] LABS: Glucose - Point of Care 148 mg/dl (70-99)
[2024-08-04 19:40] LABS: Glucose - Point of Care 169 mg/dl (70-99)
[2024-08-04 19:53] LABS: Blood Urea Nitrogen 19 mg/dl (7-17); Calcium 7.8 mg/dl (8.4-10.2); Carbon Dioxide 10 mmol/L (22-30); Chloride 114 mmol/L (98-107); Estimated Creatinine Clearance 87 ml/min; Glucose 177 mg/dl (70-99); Potassium 4.3 mmol/L (3.5-5.1); Sodium 138 mmol/L (135-145); eGFR > 60.00
--- NOTE | 2024-08-04 20:00 | PTCARENOTE ---
Rec'd pt resting in bed, amb w/o assistance to bathroom to void ad shanat, denies pain, cooperative, SR/ ST, bp stable, + pulses, skin warm/dry, RA, lungs clear, sat 99, + bowel sounds, no bm, abd soft, no n/v, npo except meds, voiding w/i difficulty
in BR, insulin gtt per protocal- see flow sheet for titrations, Saeed Banerjee NP aware of critical lab- will cont to monitor
[2024-08-04 20:33] LABS: Glucose - Point of Care 191 mg/dl (70-99)
[2024-08-04 21:30] LABS: Glucose - Point of Care 198 mg/dl (70-99)
[2024-08-04] MEDS: MELATONIN 3 MG PO (21:33)
[2024-08-04] MEDS: NON-FORMULARY ITEM 1 TABLET PO (21:33)
[2024-08-04 22:28] LABS: Glucose - Point of Care 224 mg/dl (70-99)
[2024-08-04 23:29] LABS: Glucose - Point of Care 239 mg/dl (70-99)
[2024-08-05] VITALS (11 sets, daily range): BP systolic 89–127; BP diastolic 56–68; BMI 23.2
[2024-08-05] LABS: Blood Urea Nitrogen 17 mg/dl (7-17); Calcium 7.6 mg/dl (8.4-10.2); Carbon Dioxide 12 mmol/L (22-30); Chloride 116 mmol/L (98-107); Estimated Creatinine Clearance 102 ml/min; Glucose 248 mg/dl (70-99); Potassium 4.6 mmol/L (3.5-5.1); Sodium 139 mmol/L (135-145); eGFR > 60.00
--- NOTE | 2024-08-05 | PTCARENOTE ---
sys reviewed, changes noted
[2024-08-05 00:42] LABS: Glucose - Point of Care 206 mg/dl (70-99)
[2024-08-05] MEDS: D5/0.9% with KCL 20 MEQ 1000 IV (00:42)
[2024-08-05 01:38] LABS: Glucose - Point of Care 224 mg/dl (70-99)
[2024-08-05 02:28] LABS: Glucose - Point of Care 208 mg/dl (70-99)
[2024-08-05 03:31] LABS: Glucose - Point of Care 230 mg/dl (70-99)
--- NOTE | 2024-08-05 03:45 | PTCARENOTE ---
sys reviewed, changes noted
[2024-08-05 04:02] LABS: Hematocrit 30.8 % (37.0-47.0); Hemoglobin 10.5 g/dL (12.0-16.0); Mean Corp Hgb Conc. 34.1 g/dL (33.0-37.0); Mean Corpuscular Hgb 31.6 pg (27.0-31.0); Mean Corpuscular Volume 92.8 fL (81.0-99.0); Mean Platelet Volume 12.5 fL (7.4-10.4); Platelet Count 202 10^3/uL (130-400); Red Blood Cell Count 3.32 10^6/uL (4.20-5.40); White Blood Cell Count 12.2 10^3/uL (4.8-10.8)
[2024-08-05 04:17] LABS: Blood Urea Nitrogen 15 mg/dl (7-17); Calcium 7.1 mg/dl (8.4-10.2); Carbon Dioxide 19 mmol/L (22-30); Chloride 119 mmol/L (98-107); Estimated Creatinine Clearance 102 ml/min; Glucose 211 mg/dl (70-99); Potassium 4.1 mmol/L (3.5-5.1); Sodium 141 mmol/L (135-145); eGFR > 60.00
[2024-08-05 04:34] LABS: Glucose - Point of Care 231 mg/dl (70-99)
[2024-08-05 05:26] LABS: Glucose - Point of Care 178 mg/dl (70-99)
[2024-08-05 06:28] LABS: Glucose - Point of Care 158 mg/dl (70-99)
--- NOTE | 2024-08-05 07:33 | CON.INTV ---
Consultation
Consultation Request
Date/Time Consultation Requested: 08/04/2024
Date/Time Consultation Performed: 08/05/2024
Requesting Provider: Bri Pearson
Performing Provider: Diana Fernández
Reason for Consultation: DKA
Medical History
-
Chief Complaint: Nausea, vomiting
History of Present Illness:
Patient is a very pleasant 43-year-old female with known history of insulin-dependent diabetes mellitus, managed with insulin pump who presented with nausea and vomiting yesterday. Patient reports that she recently got some dental work done and
blood sugars have been running high since. There was concern for possible band cartridge versus pump dysfunction and her blood sugar continued to get very high despite additional insulin. In the emergency room workup was consistent with diabetic
ketoacidosis and she was given IV fluid resuscitation followed by initiation of insulin infusion. Patient was admitted to the ICU and fire engine operator consult was requested for further input.
Past Medical History
Past Medical History: Reports Other
Additional Past Medical History:
b/l shoulder capsulitis.
Cervical radiculopathy
Anxiety
Type 1 diabetes
HPV/condyloma
Past Surgical History: Reports Other
Additional Past Surgical History:
Cervix LEEP,
Social History
Tobacco: Former Smoker
Alcohol: None
Drug: Former User
Living: With Family
Employment: Employed
Family History
Family History: Not pertinent
Allergies / Home Medications
Allergies reflects when Allergies were last updated in [facility].
Home Medications with original date entered in [facility]
Allergies / Home Medications
Allergies
Allergy/AdvReac Type Severity Reaction Status Date / Time
No Known Allergies Allergy Verified 08/04/24 11:16
Home Medications
�Medication �Instructions �Recorded �Confirmed �Last Taken �Type
Patient Own Insulin Pump 1 sliding scale dose SC .VIA 08/04/24 08/04/24 Unknown History
INSULIN LISPRO
ibuprofen 800 mg tablet 800 mg PO Q6HPRN PRN mild pain 08/04/24 08/04/24 Unknown History
melatonin 3 mg tablet 3 mg PO HSPRN PRN sleep 08/04/24 08/04/24 Unknown History
norgestrel 0.3 mg-ethinyl 1 tab PO HS 08/04/24 08/04/24 08/03/24 History
estradiol 30 mcg tablet (Elinest)
Review of Systems
-
Hematologic/Lymphatic: Other (All 14 systems reviewed and negative except as stated above in the history of present illness.)
Vitals / Labs / Diagnostic Testing
Vital Signs
Temp Pulse Resp BP Pulse Ox
98.3 F 71 16 103/63 99
08/05/24 03:44 08/05/24 06:00 08/05/24 06:00 08/05/24 06:00 08/05/24 03:44
Lab Data
08/05/24 03:33
Microbiology
08/04/24 12:00 Nasal Swab Influenza Types A & B (OSVALDO) - Final
Negative for Influenza A & B, NAAT
Negative results must be combined with clinical observations
and patient history.
Nucleic Acid Amplification test (NAAT)performed on the
[employer] NOW platform.
Diagnostic Testing:
Physical Exam
-
HEENT: Normocephalic
Cardiovascular: S1/S2
Respiratory: Clear
GI: Soft and Non Distended
Neurology: Awake and Alert
Skin: Warm
General: Comfortable
Assessment
-
#1. DKA with underlying Type 1 DM. Patient has responded well to IV fluids and insulin infusion. Blood sugars are currently well-controlled. Anion gap has since closed and acidosis resolved. Patient is no longer nauseous or vomiting. And
reports feeling hungry. Serum bicarb is at 19 now, normal potassium of 4.1. Sodium, BUN and creatinine also unremarkable. No reported cough, dysuria or other symptoms suggestive of infection. Review of system is fairly unremarkable this morning.
Patient is afebrile, sinus tachycardia has resolved, heart rate 71 this morning. Blood pressure 103 x 63.
- Reviewed patient's home pump setting, resume insulin pump at 7:20 AM this morning. Patient will carb count her breakfast and will give herself bolus via pump. Will continue insulin infusion and dextrose infusion until about 9 AM and then
discontinue.
- healthcare educator nurse consult
- Once patient transition fully to insulin pump, and insulin infusion stopped, can be discharged out of ICU versus discharge home.
DVT prophylaxis with subcu Lovenox. GI prophylaxis not indicated.
Critical Care time 60 mins -- The patient is admitted for acute critical illness for the treatment of vital organ failure and/or prevention of further life-threatening conditions. Total care includes time spent in review of history, physical exam,
medications, hemodynamic/ventilator parameters, laboratory data, imaging and discussion with house staff, pharmacy, respiratory therapy, budder, and nursing.
[2024-08-05] MEDS: D5/0.9% with KCL 20 MEQ IV ×2 (07:41→14:50)
[2024-08-05 07:43] LABS: Glucose - Point of Care 169 mg/dl (70-99)
--- NOTE | 2024-08-05 07:43 | W.PN.HOSP.TC ---
Addendum entered and electronically signed by Anthony Woodson MD 08/05/24 14:08:
I saw and evaluated the patient. I reviewed the resident�s note and agree with findings and plan as documented in the resident�s note except for changes in my documentation
43-year-old female with type 1 diabetes on insulin pump with vomiting. She changed her insulin pump but the cartridge appeared to be bent. Sugar was 300 when she went to bed but the reading was high when she woke up. Will continue to read high
and she had vomiting.
CVS: S1-S2 normal
Chest: CTA B/L
Abdomen: Soft, NT / Bowel sounds present
Extremities: No edema
# DKA
Likely secondary to malfunction of the pump insertion site /tubing
Type 1 diabetes hemoglobin A1c 8.0
Anion gap closed.
Patient states she uses 0.8 and 0.9 units an hour basal rate , and carb count 1 is to 15
Transitioned over to insulin pump with an overlap of 2 hours with the drip.
# Lactic acidosis-likely secondary to above
# Leukocytosis-likely secondary to stress. Getting better quickly. Chest x-ray unremarkable. Check urinalysis. Sample is contaminated. Get a good clean-catch specimen denies any diarrhea or abdominal pain Or fever at home .
# Chronic back pain / sciatica/scoliosis-on ibuprofen only as needed. Patient is aware that she should not be using long-term ibuprofen and this is not good for her stomach or kidneys.
# Prior opiate use disorder
# Restless leg syndrome
# Anxiety and depression-not on medicines at present
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
# Ex-smoker
# DVT prophylaxis-Lovenox
# Full code
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
Discussed with critical care nursing
Patient is anxious to go home. We will wait for repeat urinalysis and also repeat BMP if stable will discharge home.
Part of this note was created using voice recognition system. Occasional wrong word or��sound alike� substitutions may have inadvertently occurred due to the inherent limitations of voice recognition software. If noted kindly bring it to my
attention for correction.
Original Note:
Today's Communication/Plan
-
-Discharge planning after patient was seen by community health educator nurse and stat BMP results
Assessment / Plan
Assessment / Plan
#Type 1 DM with DKA
-Has gina managed with an insulin pump for last ~8 years-recently she changed her insulin pump
-Today`s lab results at 3.33 am : Anion gap closed with normal sodium, potassium and slightly low level of carbonate to 19 ,
-Presentation lab results were remarkable for glucose level to 389, bicarb 12, anion gap 25, lactic acid 2.4, Beta hydroxybutyrate 5.5
-community health educator nurse consulted
-Had breakfast counting her carb and started her insulin via her insulin pump 1u/hour
- DC IV insulin and dextrose this am
-Unclear etiology for trigger: No cough, no dysuria or other symptoms. Had a dental work 3 weeks ago and her blood sugar levels started to go up.
#Nausea
-Promethazine as needed
#Cervical radiculopathy
-Pain management as needed
#DVT prophylaxis
-Lovenox
Anticipated Discharge: Within 24 hours
Subjective/Interval History
-
Date of Service: August 05, 2024
Patient denies any abdominal pain, chest pain, dysuria, shortness of breath, fever and chills. Reports her headache improved after having her coffee in the morning. Has history of migraines.
Objective Data
-
Labs:
Laboratory Results
08/04/24 08/04/24 08/05/24
19:29 23:30 00:00
WBC
Hgb
Hct
Plt Count
Sodium 138 139 Cancelled
Potassium 4.3 4.6 Cancelled
Chloride 114 H 116 H Cancelled
Carbon Dioxide 10 L* 12 L* Cancelled
BUN 19 H 17 Cancelled
Creatinine 0.7 0.6 Cancelled
Glucose 177 H 248 H Cancelled
Calcium 7.8 L 7.6 L Cancelled
08/05/24 08/05/24 08/05/24
03:33 08:00 12:00
WBC 12.2 H
Hgb 10.5 L
Hct 30.8 L
Plt Count 202 D
Sodium 141 Pending Pending
Potassium 4.1 Pending Pending
Chloride 119 H Pending Pending
Carbon Dioxide 19 L Pending Pending
BUN 15 Pending Pending
Creatinine 0.6 Pending Pending
Glucose 211 H Pending Pending
Calcium 7.1 L Pending Pending
08/05/24
16:00
WBC
Hgb
Hct
Plt Count
Sodium Pending
Potassium Pending
Chloride Pending
Carbon Dioxide Pending
BUN Pending
Creatinine Pending
Glucose Pending
Calcium Pending
Vital Signs:
Vital Signs
Temp Pulse Resp BP Pulse Ox
98.3 F 71 16 103/63 99
08/05/24 03:44 08/05/24 06:00 08/05/24 06:00 08/05/24 06:00 08/05/24 03:44
I&O
08/04/24 08/05/24 08/06/24
06:59 06:59 06:59
Intake Total 2230
Balance 2230
Review of Systems
-
History Source: Patient
All other systems: Reviewed and negative
Physical Exam
-
General: Well Developed, Well Nourished, No Apparent Distress, Comfortable and Conversant
HEENT: Normocephalic and Atraumatic
Respiratory: Clear to Auscultation
Cardiac: Regular Rhythm and S1/S2
GI: Soft and Nontender
Musculoskeletal: No Clubbing, No Cyanosis and No Edema
Skin: Warm
Neuro: Awake, Alert, Oriented and AO x 3
Psych: Calm
--- NOTE | 2024-08-05 07:48 | PTCARENOTE ---
Equity Sales Assistant team at bedside plan and start transition to patients' own insulin pump. Maintain drip and marlon till 0900. Transition to diet as ordered. Await diabetic team, coordinator for follow up transition. Patient discussing recent pump issues
trends and dehydration. Continue teaching and follow up trands. Assessment and vital sign trends ongoing and as documented.
--- NOTE | 2024-08-05 08:29 | PTCARENOTE ---
Patient transition to pump continues. Follow patient accu data trends. Patient has on her monitor/pump. Bolus self as per protocol, breakfast provided, IVF off, pump off at 0900am as per underwriting account representative team. 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 Continue follow up as per patient and critical care team.
--- NOTE | 2024-08-05 09:27 | PTCARENOTE ---
Insulin off, IVF off tolerated 100% of breakfast. Patient pump as per orders, monitor trend as per patient presently 133. Continue to follow.
--- NOTE | 2024-08-05 09:42 | PTCARENOTE ---
Update hospitalist team. Follow up patient pump. Await am rounds. Await diabetic coordinator and team.
[2024-08-05 10:10] LABS: Glucose - Point of Care 92 mg/dl (70-99)
--- NOTE | 2024-08-05 10:15 | PTCARENOTE ---
Patient tolerated breakfast repeat accu data trends 93. Patient adjust pump. Continue to follow along. Patient hoping to go home. Gera instructions from am. UA sent with culture, await pharmacy to update new orders.
[2024-08-05 10:29] LABS: Urine Albumin Negative (Neg - Trace); Urine Bilirubin Negative (Negative); Urine Character Slightly Cloudy (Clear); Urine Color Yellow; Urine Glucose 3+ (Negative); Urine Ketone 1+ (Negative); Urine Leukocyte 2+ (Negative); Urine Nitrite Positive (Negative); Urine Occult Blood 1+ (Negative); Urine Specific Gravity 1.015 (<1.030); Urine Urobilinogen Negative (Neg - 1+)
--- NOTE | 2024-08-05 10:55 | PTCARENOTE ---
Hospitalist team and DM coordinator rounds. Follow up afternoon [id number] hrs. Possible dc later today. VSS, glucose [id number] as per patient. Continue follow up orders and labs.
[2024-08-05 11:02] LABS: Urine Squamous Cell >30 /LPF (Few)
[2024-08-05 11:03] LABS: Urine Urothelial Cell 16-20 /LPF (FEW)
[2024-08-05 11:04] LABS: Urine Amorphous Seen
[2024-08-05 11:05] LABS: Urine Bacteria Many (Negative); Urine White Cell 21-25 /HPF (0-5)
[2024-08-05] MEDS: MAGNESIUM OXIDE 500 MG PO (12:06)
--- NOTE | 2024-08-05 13:22 | W.DCSUMMARY ---
Discharge Summary
Discharge Data
Date of Admission: 08/04/24
Date of Discharge: 08/05/24
-
Pending Results: No
Hospital Course
Disposition : Home
Principal Discharge diagnosis : Diabetic Ketoacidosis with underlying Type 1 Diabetes Mellitus
Chronic Discharge diagnosis : Restless leg syndrome, diabetic neuropathy, cervical intraepithelial neoplasia, anxiety/depression, ESBL UTI/pyelonephritis,prior opioid use disorder
Hospital Course : The patient presented to ER with nausea and vomiting on 08/04/24. The patient has a known history of insulin-dependent diabetes mellitus, managed with insulin pump. At ER admission her lab results were remarkable for glucose
level to 389, bicarb 12, anion gap 25, lactic acid 2.4, Beta hydroxybutyrate 5.5 and lactic acid 2.4. Her Chest x Ray was not remarkable. She was transferred to ICU for a close assessment and management. The patient was started to IV fluids and
insulin infusion and gradually get better. Her lab results on 08/05/24 am noted mostly normal levels of serum bicarb is at 19 ,potassium of 4.1, [id number] , BUN 15, and creatinine 0.6. The patient`s glucose level gradually decreased and her
symptoms resolved. The patient`s insulin infusion switched to her insulin pump source after the anion gap came back to normal. She was consulted to diabetic nurse educator and was discussed how to adjust her insulin dose via pump. She was
recommended to have a follow-up in a week with her PCP.
Important imaging findings :
Chest X ray 08/04/24
FINDINGS:
The heart size and pulmonary vasculature appears within normal limits. The trachea is midline. The lung volumes are normal. There is no radiographic evidence for focal airspace opacity suspicious for pneumonia. There is no radiographic evidence for
inflammatory interstitial pneumonitis in the lungs. There is no radiographic evidence for pleural effusion or pneumothorax.
There is minimal right convex curvature of the lower thoracic spine. There is no radiographic evidence for pneumoperitoneum or abnormal bowel dilatation in the upper abdomen.
IMPRESSION:
No radiographic evidence for cardiopulmonary disease.
Procedure findings :
Discharge Plan
-
Patient Disposition: Home (Routine Discharge)
Discharge Diagnosis/Procedures: Diabetic Ketoacidosis with underlying Type 1 Diabetes Mellitus
Diet: Diabetic, Carb Controlled
Activity: As tolerated
Driving Restrictions: As prior to admission
Activity Restrictions/Additional Instructions:
Follow-up with your urologist for abnormal urine and recurrent urinary tract infections
If you develop burning or pain with urination or fever see primary physician.
results of Vitamin D and B12 pending at discharge. See PCP to get results from [facility].
Referrals:
Cece Posadas DO [Active] -
Julio Cesar Montero DO [Family Provider] - in less than 1 week
Prescriptions:
New
cholecalciferol (vitamin D3) [Vitamin D3] 10 mcg (400 unit) capsule
10 mcg PO DAILY Qty: 30 0RF
Continued
Elinest 0.3-30 mg-mcg Tablet
1 tab PO HS
ibuprofen 800 mg Tablet
800 mg PO Q6HPRN PRN (Reason: mild pain)
melatonin 3 mg Tablet
3 mg PO HSPRN PRN (Reason: sleep)
Patient Own Insulin Pump
1 sliding scale dose SC .VIA INSULIN LISPRO
Patient Comments:
insulin lispro
Discharge Orders:
Discharge Patient (As Directed); Ordered 08/05/24
Ordered By: Armida Snyder
Discharge Date and Time
Print Language: AMHARIC
--- NOTE | 2024-08-05 13:59 | PN.DE.MGMTRT ---
Insulin Management
- -
08/05/2024 Diabetes Management Consult
Patient admitted 08/04 with DKA. PMH type 1 diabetes, anxiety, HPV. Prior to admission was using the Tandem tslim x2 pump with control IQ, DexCom G6, Humalog and auto soft infusion sets. A1C 8%, cr .6, eGFR > 60.
Patient is awake alert and oriented, able to discuss diabetes care. Patient sees Dr. Oneill for ongoing diabetes care. Patient known to me from both inpatient and outpatient setting. She has been struggling with multiple dental repairs and
UTI's. Current pump settings:
Basal sensitivity CGO target
12am .8 40 10 110
3am .9 40 10 110
6:30am .8 40 10 110
7pm .9 40 10 110
10pm .8 40 10 110
24 HOURS BASAL TOTAL 21.05
Inspected patient infusion site, only uses abdomen, which has significant lipohypertrophy and scarring. Advised patient next set change she would need to move to new location. Discussed using outer aspect of hip and or upper thigh. She is
agreeable.
Patient to continue to use her pump.
Diabetes History
- -
Type of Diabetes: 1
Pre-Admission Diabetes Regimen
08/04/24 08/04/24 08/04/24
13:35 15:00 16:47
Creatinine 0.8 0.8 0.7
08/04/24 08/04/24 08/05/24
19:29 23:30 00:00
Creatinine 0.7 0.6 Cancelled
08/05/24
03:33
Creatinine 0.6
Lab Results
Hemoglobin A1c 8.0 % (4.0-5.6) H 08/05/24 03:33
Insulin Pump Settings
IP Diabetes Regimen
08/04/24 08/04/24 08/04/24
13:35 14:54 15:00
Glucose 388 H 274 H
POC Glucose 262 H
08/04/24 08/04/24 08/04/24
15:46 16:34 16:47
Glucose 164 H
POC Glucose 202 H 171 H
08/04/24 08/04/24 08/04/24
17:34 18:31 19:28
Glucose
POC Glucose 137 H 148 H 169 H
08/04/24 08/04/24 08/04/24
19:29 20:31 21:28
Glucose 177 H
POC Glucose 191 H 198 H
08/04/24 08/04/24 08/04/24
22:27 23:27 23:30
Glucose 248 H
POC Glucose 224 H 239 H
08/05/24 08/05/24 08/05/24
00:00 00:31 01:27
Glucose Cancelled
POC Glucose 206 H 224 H
08/05/24 08/05/24 08/05/24
02:27 03:30 03:33
Glucose 211 H
POC Glucose 208 H 230 H
08/05/24 08/05/24 08/05/24
04:33 05:25 06:27
Glucose
POC Glucose 231 H 178 H 158 H
08/05/24 08/05/24
07:32 10:10
Glucose
POC Glucose 169 H 92
Meal type: Lunch
Meal type: Breakfast
Meal type: Dinner
Amount consumed: 100%
Patient Education
[2024-08-05 15:07] LABS: Glucose - Point of Care 170 mg/dl (70-99)
--- NOTE | 2024-08-05 15:08 | PTCARENOTE ---
All labs sent, repeat ua sent. Follow up plan of cares. Patient vitals as documented. Patient ambulating room. Hoping to go home with family. Patient best friend at bedside. Await results and follow up.
[2024-08-05 15:09] LABS: Albumin 3.5 g/dl (3.5-5.0); Blood Urea Nitrogen 12 mg/dl (7-17); Calcium 8.2 mg/dl (8.4-10.2); Carbon Dioxide 19 mmol/L (22-30); Chloride 113 mmol/L (98-107); Estimated Creatinine Clearance 102 ml/min; Glucose 153 mg/dl (70-99); Potassium 3.9 mmol/L (3.5-5.1); Sodium 139 mmol/L (135-145); eGFR > 60.00
[2024-08-05 15:11] LABS: Urine Albumin 1+ (Neg - Trace); Urine Bilirubin Negative (Negative); Urine Character Cloudy (Clear); Urine Color Yellow; Urine Glucose Negative (Negative); Urine Ketone 3+ (Negative); Urine Leukocyte 2+ (Negative); Urine Nitrite Negative (Negative); Urine Occult Blood 1+ (Negative); Urine Urobilinogen Negative (Neg - 1+)
[2024-08-05 15:20] LABS: Urine Bacteria Many (Negative); Urine Red Blood Cell 0-2 /HPF (0-2); Urine Squamous Cell >30 /LPF (Few); Urine White Cell 26-30 /HPF (0-5)
[2024-08-05 15:25] LABS: Vitamin D, 25-OH*** 26.4 ng/mL (30-80)
--- NOTE | 2024-08-05 15:25 | PTCARENOTE ---
Labs and repeat ua sent. Updates with hospitalist await follow up continue to discharge or downgrade. CVSS and assessment unchanged. Patient managing insulin pump at this time. Continue with teaching and follow up.
[2024-08-05 15:59] LABS: Vitamin B12 527 pg/ml (239-931)
--- NOTE | 2024-08-05 16:12 | PTCARENOTE ---
Update discharge instructions and plan of cares. Review follow up labs and ua with patient and hospitalist. Patient stating that she lives with chronic uti doesn't wish to take antibiotics, but will follow up with her GP so she can review labs
events and plan of cares. Verbalizes understanding of cares and concerns. Reinforce discharge instruction. Follow up with attending and pharmacy.
== END 2024-08-05 16:10 | disposition home or self-care (01) | DRG 919 ==
LOC: ICU 13:53
PROVIDERS: Physician Assistant; Registered Nurse; Student in an Organized Health Care Education/Training Program; ADMITTING PHYSICIAN Hospitalist; ATTENDING PHYSICIAN Hospitalist; CONSULT PHYSICIAN Internal Medicine; EMERGENCY PHYSICIAN Student in an Organized Health Care Education/Training Program; FAMILY PHYSICIAN Family Medicine
DX: T85.614A Breakdown (mechanical) of insulin pump, initial encounter (principal); E10.10 Type 1 diabetes mellitus with ketoacidosis without coma; N39.0 Urinary tract infection, site not specified; Z16.12 Extended spectrum beta lactamase (ESBL) resistance; T38.3X6A Underdosing of insulin and oral hypoglycemic [antidiabetic] drugs, initial encounter; F32.A Depression, unspecified; F41.9 Anxiety disorder, unspecified; G25.81 Restless legs syndrome; G89.29 Other chronic pain; F11.10 Opioid abuse, uncomplicated; M54.12 Radiculopathy, cervical region; E86.0 Dehydration; N87.9 Dysplasia of cervix uteri, unspecified; Y84.8 Other medical procedures as the cause of abnormal reaction of the patient, or of later complication, without mention of misadventure at the time of the procedure; Y92.009 Unspecified place in unspecified non-institutional (private) residence as the place of occurrence of the external cause; Z96.41 Presence of insulin pump (external) (internal); Z79.4 Long term (current) use of insulin; Z87.891 Personal history of nicotine dependence; Z45.1 Encounter for adjustment and management of infusion pump; Z87.440 Personal history of urinary (tract) infections; Z11.52 Encounter for screening for COVID-19; B96.89 Other specified bacterial agents as the cause of diseases classified elsewhere
CPT/HCPCS: 71045; 80048; 80053; 81003; 81015; 82010; 82040; 82306; 82607; 82805; 82962; 83036; 83605; 83690; 83735; 84703; 85025; 85027; 87077; 87086; 87502; 87811; 93005; 96361; 96374; 99291